=== PATIENT | male | born 1970 | race Caucasian/White ===

== ENCOUNTER 2020-01-17 17:18 | Outpatient (REF) | payer OTHER, SELFPAY | END 2020-01-17 17:19 | disposition home or self-care (01) | LOC: HO.LAB 17:18 | PROVIDERS: Visit Provider Internal Medicine | DX: Z20.828 Contact with and (suspected) exposure to other viral communicable diseases (principal) | CPT/HCPCS: C9803; U0003 ==

== ENCOUNTER 2020-03-25 08:09 | Inpatient (IN) | payer OTHER, SELFPAY ==
[2020-03-25] VITALS (15 sets, daily range): BP systolic 105–162; BP diastolic 58–91; PULSE 72–103; RESP 16–18; TEMP 36.2–37.8; O2SAT 92–99; BMI 36.2
--- NOTE | 2020-03-25 09:20 | CT_ITS ---
EXAMINATION: CT ABDOMEN AND PELVIS WITH CONTRAST CLINICAL INFORMATION: Abdominal pain. COMPARISON: None TECHNIQUE: Multidetector volumetric images were obtained from the superior aspect of the liver through the pubic symphysis following administration 85 mL of Omnipaque 350 intravenous contrast. Sagittal and coronal reformatted images were obtained on the technologist's workstation. Oral contrast: Yes This CT examination was performed using dose optimization techniques as appropriate, variously including the following: *Automated exposure control *Adjustment of mA and/or kV according to patient size (this includes techniques or standardized protocols for targeted exams where dose is matched to indication/reason for exam; i.e. extremities or head) *Use of iterative reconstruction technique DLP: 862 mGy-cm FINDINGS: LUNG BASES: The visualized lung bases are unremarkable. LIVER, GALLBLADDER, AND BILIARY TREE: The liver is low in attenuation suggestive of fatty infiltration. No focal liver lesion is seen. The liver is enlarged, right lobe measuring 24 cm in length. The gallbladder is unremarkable with no evidence of radiopaque gallstones, gallbladder wall thickening, or obvious pericholecystic inflammatory changes. PANCREAS: Unremarkable. SPLEEN: The spleen is enlarged measuring 14 cm in length. The spleen is otherwise unremarkable. ADRENAL GLANDS: Unremarkable. KIDNEYS AND URETERS: The kidneys are normal in size, shape, and attenuation. No hydronephrosis, hydroureter, or calculi seen. No perinephric stranding. BLADDER: Not optimally distended. GASTROINTESTINAL TRACT: The appendix is slightly dilated measuring up to 1.3 cm and fluid-filled. There is high attenuation seen in the base of the appendix suggestive of an appendicolith. There is minimal stranding of the periappendiceal fat. Findings are suggestive of acute appendicitis. No abscess or adjacent fluid is seen. Small and large bowel is unremarkable. The stomach is unremarkable. ABDOMINAL WALL: There is a small umbilical hernia containing fat. There is a small right inguinal hernia containing fat. LYMPH NODES: Normal. VASCULAR: Unremarkable. PELVIC VISCERA: Unremarkable. OSSEOUS STRUCTURES: There are degenerative changes of the spine. CT/CT abdomen pelvis w con IMPRESSION: Acute appendicitis. Fatty liver. Hepatosplenomegaly.
--- NOTE | 2020-03-25 09:21 | ED_ITS ---
HPI - General Adult General Chief complaint: Abdominal Pain Stated complaint: abd pain Time Seen by Provider: 03/25/20 09:09 Source: patient Mode of arrival: ambulatory Limitations: no limitations History of Present Illness HPI narrative: 49-year-old male who presents emergency department for the evaluation of abdominal pain. The patient states that the pain woke him up from sleep at around 1:30 a.m.. He describes the pain as a constant, punching sensation across his mid umbilical area. He states that the pain is 7/10. He states that he has the urge to move his bowels but he only moved his bowels once. He denied frequency or dysuria. He denied nausea, vomiting, fever or chills. He denied chest pain or shortness of breath. This is the patient's 1st episode this type pain. He has no past medical history or past surgical history. Related Data Allergies Allergy/AdvReac Type Severity Reaction Status Date / Time No Known Allergies Allergy Unverified 11/29/19 16:13 Review of Systems Review of Systems: Yes all other systems are reviewed and are negative Neurologic: Reports Abnormal speech present [facility] Past Medical History [facility] Narrative: The patient has no past medical or past surgical history, he works at [employer], he denies tobacco and alcohol use. Source: unable to obtain Medical History (Updated 03/25/20 @ 09:09 by Cat Araiza) Psoriasis Social History Social History Smoking Status: Current every day smoker Use of substances other than those prescribed or required for medical reasons: No Advance Directives: No Advance Directives Information Provided: Yes Physical Exam Vital Signs: Vital Signs: Last Vital Signs Temp 98.8 F 03/25/20 09:07 Pulse 74 03/25/20 10:39 Resp 18 03/25/20 10:39 BP 119/76 03/25/20 10:39 Pulse Ox 96 03/25/20 10:39 Body Mass Index 36.2 Const: General: cooperative and healthy appearing Nutritional Appearance: obese Orientation/consciousness: oriented to person and oriented to place Limitations: no limitations HENMT: Head: Yes normal to inspection, Yes normocephalic and Yes atraumatic Ears: external ears normal General nose exam: Normal external nose present Face and sinus: Yes normal facial exam Mouth: Normal oral and palatal mucosa present Throat: Yes posterior oropharynx normal Eyes: Periorbital: periorbital findings normal Eyelids: Yes eyelids normal Conjunctivae: conjunctivae normal Sclerae: sclerae normal Corneas: corneas normal Pupils: Equal, round and reactive pupils present Direct Ophthalmoscopy: normal light reflex Neck: Neck: Yes full ROM, Yes no lymphadenopathy, Yes no meningeal signs, Yes trachea midline and Yes supple Chest: Chest palpation & inspection: normal inspection of the chest and normal palpation of entire chest wall Resp: Effort & Inspection: normal respiratory effort and able to speak in complete sentences Auscultation: clear to auscultation bilaterally Cardio: Rate: regular rate Rhythm: regular rhythm Heart sounds: S1 normal heart sound present, S2 normal heart sound present and no murmurs GI: Inspection: Yes normal to inspection Palpation (GI): Soft to palpation, Tenderness to palpation present (GI) in the LLQ (Mild), in the RLQ (Mild) and periumbilically (Moderate), no guarding, not rigid and No hepatosplenomegaly present : General: Yes no CVA tenderness Back/Spine/Pelvis: Back: no CVA tenderness Cervical Spine: normal cervical lordosis Thoracic/Lumbar Spine: thoracic and lumbar spine normal to inspection Skin: Lesions: no lesions Rashes: no rashes Wounds: no wounds Neuro: General: oriented to person, oriented to place and no meningeal signs Cranial nerves: Yes CN's II-XII intact bilaterally and Yes Equal, round and reactive pupils present Cognition (Neuro): normal cognition Speech: Abnormal speech present Motor exam (neuro): 5/5 motor strength present throughout Extrem: General: Yes normal to inspection and Yes full ROM Psych: Appearance: well kempt Mental Status: mental status grossly normal Speech and movement: Normal speech and movement present Affect: normal affect Attitude: cooperative Thought process: Normal thought process present Thought content: Normal thought content present Course Course Course Narrative: 49-year-old male with no past medical or surgical history presents emergency department for evaluation of periumbilical pain which woke him from sleep at 1:30 a.m.. Examination did reveal periumbilical tenderness as well as very mild left lower and right lower quadrant tenderness. Differential includes but is not limited to appendicitis, diverticulitis, pancreatitis. I ordered an abdominal workup to include laboratory evaluation and CT scan of the abdomen pelvis with IV contrast. Patient's symptoms were treated with Toradol 30 mg IV, Zofran 4 mg IV and normal saline x1 L. 1150: The patient's CT scan is consistent with acute appendicitis. Laboratory evaluation revealed an elevated white blood count 13982 and elevated glucose of 254. COVID-19 test was negative. I will discuss the patient's presentation with the covering hospitalist. Patient states he to get relief of his pain with Toradol and does not want a further pain medications at this time. 1157: I did discuss the patient's presentation with the covering surgeon, Dr. Brown who will admit the patient to her service for further management. Medical Decision Making Lab Data Result diagrams: 03/25/20 09:22 03/25/20 09:22 Labs: Lab Results 03/25/20 03/25/20 03/25/20 Range/Units 09:22 09:22 10:38 WBC 15.4 H (4.8-10.8) X10*3/uL RBC 5.26 (4.60-5.80) X10*6/uL Hgb 15.8 (14.0-18.0) g/dl Hct 45.1 (42-52) % MCV 85.7 (80-98) fL MCH 30.0 (27.0-33.0) pg MCHC 35.0 (31.0-36.0) g/dl RDW 12.3 (11.0-16.0) % Plt Count 216 (160-400) X10*3/uL MPV 10.5 (9.4-12.4) fL Immature Gran % (Auto) 0.5 H (0.0-0.4) % Neut % (Auto) 80.3 H (45-73) % Lymph % (Auto) 12.5 L (20-40) % [place] % (Auto) 5.9 (2-11) % Eos % (Auto) 0.4 (0-4) % Baso % (Auto) 0.4 (0-2) % Lymph # (Auto) 1.9 (1.2-4.9) X10*3/uL [place] # (Auto) 0.9 (0.1-1.2) X10*3/uL Eos # (Auto) 0.1 (0.0-0.4) X10*3/uL Baso # (Auto) 0.1 (0.0-0.2) X10*3/uL Abs Immat Gran (auto) 0.08 H (0.00-0.03) X10*3/uL Absolute Neuts (auto) 12.3 H (2.0-8.3) X10*3/uL Absolute Nucleated RBC 0.000 (0.0-0.012) X10*3/uL Nucleated RBC % (auto) 0.0 (0.0-0.2) /100WBC Sodium 135 (135-145) mmol/L Potassium 4.4 (3.3-5.1) mmol/l Chloride 99 (96-108) mmol/L Carbon Dioxide 22 (22-29) mmol/L Anion Gap 18 (12-20) BUN 10 (9-16) mg/dL Creatinine 0.95 (0.5-1.4) mg/dL Estim Creat Clear Calc 121.5 Estimated GFR > 60 Random Glucose 254 H (60-115) mg/dL Calcium 9.4 (8.4-10.2) mg/dL Total Bilirubin 0.5 (0.0-1.0) mg/dL AST 29 (5-37) U/L ALT 100 H (0-40) U/L Alkaline Phosphatase 88 (39-117) U/L Total Protein 7.8 (6.5-8.0) g/dL Albumin 4.8 (3.5-5.0) g/dL Urine Color YELLOW Urine Appearance CLEAR Urine pH 5.5 (5.0-8.0) Ur Specific [place] >= 1.030 H (1.005-1.025) Urine Protein NEG (NEG-TRACE) MG/DL Urine Glucose (UA) 250 H (NEG) MG/DL Urine Ketones NEG (NEG) MG/DL Urine Blood NEG (NEG) Urine Nitrite NEG (NEG) Ur Leukocyte Esterase NEG (NEG)
[2020-03-25 09:25] LABS: MANUAL DIFF FLAG NO
[2020-03-25] MEDS: 0.9 % Sodium Chloride 1,000 ML 999 ML IV (09:26)
[2020-03-25] MEDS: ondansetron HCL 4 MG/2 ML VIAL IVPUSH (09:26)
[2020-03-25] MEDS: Ketorolac Tromethamine 30 MG/ML VIAL IVPUSH (09:26)
[2020-03-25 09:27] LABS: Basophils Absolute Auto 0.1 X10*3/uL (0.0-0.2); Basophils Percent Auto 0.4 % (0-2); Eosinophils Absolute Auto 0.1 X10*3/uL (0.0-0.4); Eosinophils Percent Auto 0.4 % (0-4); Hematocrit 45.1 % (42-52); Hemoglobin 15.8 g/dl (14.0-18.0); Imm Gran Abs Auto 0.08 X10*3/uL (0.00-0.03); Imm Gran Pct Auto 0.5 % (0.0-0.4); Lymphocytes Absolute Auto 1.9 X10*3/uL (1.2-4.9); Lymphocytes Percent Auto 12.5 % (20-40); Mean Corpuscular Volume 85.7 fL (80-98); Mean Platelet Volume 10.5 fL (9.4-12.4); Monocytes Absolute Auto 0.9 X10*3/uL (0.1-1.2); Monocytes Percent Auto 5.9 % (2-11); Neutrophils Absolute Auto 12.3 X10*3/uL (2.0-8.3); Neutrophils Percent Auto 80.3 % (45-73); Platelet Count 216 X10*3/uL (160-400); Red Blood Count 5.26 X10*6/uL (4.60-5.80); Red Cell Distribution Width 12.3 % (11.0-16.0); White Blood Count 15.4 X10*3/uL (4.8-10.8)
[2020-03-25 10:10] LABS: Alanine Aminotransferase 100 U/L (0-40); Albumin Level 4.8 g/dL (3.5-5.0); Alkaline Phosphatase 88 U/L (39-117); Anion Gap 18 (12-20); Aspartate Amino Transferase 29 U/L (5-37); Bilirubin Total 0.5 mg/dL (0.0-1.0); Blood Urea Nitrogen 10 mg/dL (9-16); Calcium 9.4 mg/dL (8.4-10.2); Carbon Dioxide 22 mmol/L (22-29); Chloride 99 mmol/L (96-108); Creatinine Clr Calc Pharmacy 121.5; Estimated Glomerular Filt Rate > 60; Glucose Random 254 mg/dL (60-115); Potassium 4.4 mmol/l (3.3-5.1); Sodium 135 mmol/L (135-145); Total Protein 7.8 g/dL (6.5-8.0)
[2020-03-25 10:53] LABS: Glucose Urine UA 250 MG/DL (NEG); Leukocyte Esterase Urine NEG (NEG); Nitrite Urine NEG (NEG); PH 5.5 (5.0-8.0); Specific Gravity - Urine >= 1.030 (1.005-1.025); Urine Blood NEG (NEG); Urine Ketones NEG (NEG); Urine Protein NEG (NEG-TRACE)
[2020-03-25 10:54] LABS: Appearance Urine CLEAR; Color Urine YELLOW
[2020-03-25] MEDS: iohexoL 350 MG/ML 100 ML INFUS..BTL 95 ML IV (11:23)
--- NOTE | 2020-03-25 11:54 | PC.NURSE ---
patient a&ox3, no c/o pain at this time, pt awaiting surgical consult, vss, will continue to monitor.
[2020-03-25] MEDS: Piperacillin Sodium/Tazobactam 4.5 GM in 0.9 % Sodium Chloride 100 ML IV (12:27)
--- NOTE | 2020-03-25 12:51 | P.HPGS_ITS ---
History of Present Illness History of Present Illness Date of Service: 03/25/20 Chief complaint: abd pain Narrative: Hussain Bernabe is a 49 year old male who felt well yesterday but awoke early this morning with moderately severe pain across his mid abdomen just below the level of the umbilicus. He has not experienced similar pain in the past. Over the intervening time, the pain has become localized in the right lower quadrant. He has not experienced fever, chills, nausea or vomiting. He has no dysuria or urgency. He reports feeling as though he needs to move his bowels but he has been unable to since the time of the onset of pain. In the emergency department, workup included a CBC that demonstrated an elevated white blood count of 15.4. CT scan of the abdomen and pelvis was consistent with acute appendicitis with appendicoliths. Mild hepatosplenomegaly was noted. He does not have a history of diabetes mellitus. Blood glucose level was noted to be elevated at 254. Review of Systems Constitutional: Constitutional: Reports no additional constitutional complaints and Denies headache(s) Eyes: Eyes: Denies dry eyes and Denies requires corrective lenses ENT: Denies headache(s) Cardiovascular: Cardiovascular: Denies chest pain, Denies irregular heart rhythm, Denies palpitations and Denies dyspnea on exertion Respiratory: Respiratory: Denies cough, Denies dyspnea on exertion and Denies wheezing Gastrointestinal: Gastrointestinal: Reports as per HPI Genitourinary: Genitourinary: Denies dysuria, Denies nocturia and Denies urinary frequency Musculoskeletal: Comments: Generalized aches and pains Integumentary/Breasts: Skin/Breast: Denies pruritus Comments: History of psoriasis treated with injectable medication every other month Neurologic: Reports Abnormal speech present, Denies headache(s) and Denies memory loss Psychiatric: Psychiatric: Denies memory loss Endocrine: Endocrine: Denies palpitations Allergic/Immunologic: Allergic/Immunologic: Denies wheezing PMF Past Medical History Medical History (Updated 03/25/20 @ 13:00 by Benita Brown MD) Psoriasis Surgical History Surgical History (Updated 03/25/20 @ 12:57 by Benita Brown MD) History of right inguinal hernia repair Social History Social History (Updated 03/25/20 @ 12:57 by Benita Brown MD) Smoking Status: Current every day smoker Packs Per Day: 1 Use of substances other than those prescribed or required for medical reasons: No Advance Directives: No Advance Directives Information Provided: Yes Meds Allergies Allergy/AdvReac Type Severity Reaction Status Date / Time No Known Allergies Allergy Unverified 11/29/19 16:13 Physical Exam Vital Signs: Vital Signs: Last Vital Signs Temp 98.2 F 03/25/20 11:53 Pulse 78 03/25/20 11:53 Resp 18 03/25/20 11:53 BP 129/78 03/25/20 11:53 Pulse Ox 96 03/25/20 11:53 Body Mass Index 36.2 Const: General: healthy appearing, no acute distress and alert Orientation/consciousness: oriented to person and oriented to place HENMT: Head: Yes normal to inspection Ears: hearing grossly normal bilaterally Face and sinus: Yes normal facial exam Eyes: Conjunctivae: conjunctivae normal Sclerae: sclerae normal EOM: EOMs intact bilaterally Neck: Neck: Yes normal visual inspection and Yes trachea midline Resp: Effort & Inspection: normal respiratory effort Auscultation: clear to auscultation bilaterally Cardio: Rate: regular rate Rhythm: regular rhythm Heart sounds: no murmurs GI: Inspection: No distended Palpation (GI): Soft to palpation, Tenderness to palpation present (GI) in the RLQ, no guarding, not rigid and Hernia present umbilical (Small) Auscultation: normal bowel sounds Rectal Exam - Male: Yes deferred Skin: Other: normal color, warm and dry Neuro: General: oriented to person and oriented to place Cognition (Neuro): normal cognition Speech: Abnormal speech present Extrem: General: Yes normal to inspection Psych: Appearance: grossly normal Mental Status: mental status grossly normal Affect: normal affect Thought process: Normal thought process present Insight: Good insight present (Psych) Results Results Labs: Short CBC 03/25/20 Range/Units 09:22 WBC 15.4 H (4.8-10.8) X10*3/uL Hgb 15.8 (14.0-18.0) g/dl Hct 45.1 (42-52) % Plt Count 216 (160-400) X10*3/uL BMP 03/25/20 09:22 Sodium 135 Potassium 4.4 Chloride 99 Carbon Dioxide 22 BUN 10 Creatinine 0.95 Calcium 9.4 Liver Function 03/25/20 Range/Units 09:22 Total Bilirubin 0.5 (0.0-1.0) mg/dL AST 29 (5-37) U/L ALT 100 H (0-40) U/L Alkaline Phosphatase 88 (39-117) U/L Albumin 4.8 (3.5-5.0) g/dL Urine 03/25/20 Range/Units 10:38 Urine Color YELLOW Urine Appearance CLEAR Urine pH 5.5 (5.0-8.0) Ur Specific [place] >= 1.030 H (1.005-1.025) Urine Protein NEG (NEG-TRACE) MG/DL Urine Glucose (UA) 250 H (NEG) MG/DL CT scan abdomen and pelvis: IMPRESSION: Acute appendicitis. Fatty liver. Hepatosplenomegaly. Assessment and Plan (1) Acute appendicitis: Status: Acute History, exam findings and CT scan are consistent with acute appendicitis. The CT scan demonstrates an appendicoliths, which is a relative contraindication to antibiotic therapy. We discussed treatment options including but not limited to antibiotic treatment, open appendectomy and la paroscopic appendectomy with potential need to convert to open. We discussed that antibiotic therapy may not be successful and that there is an increased likelihood of this given the presence of the appendicoliths. We reviewed that if it is successful, there is a possibility that he will developed recurrent appendicitis. We reviewed the technique of appendectomy and the potential advantages of laparoscopic appendectomy with earlier return to full activity. We reviewed surgical risks including but not limited to infection, bleeding, DVT and PE, error in diagnosis, incisional hernia, and breakdown of repair at the site of appendectomy. He has elected to proceed with laparoscopic appendectomy. That has been scheduled for later this afternoon. Blood sugars noted to be significantly elevated. This will be followed during hospitalization.
[2020-03-25] MEDS: Lactated Ringers 1,000 ML 250 ML IVCONT (13:02)
[2020-03-25] MEDS: Morphine Sulfate 4 MG/ML CARTRIDGE IVPUSH (13:10)
--- NOTE | 2020-03-25 13:15 | PC.NURSE ---
med req completed, patient belongings list completed, ivf started and patient medicated for pain, will continue to monitor.
--- NOTE | 2020-03-25 13:29 | PC.NURSE ---
report given to aide at [facility], she stated pt will eventually go direct to PACU before surgery but they wont be taking the patient until later, his surgery will be approx 430pm.
--- NOTE | 2020-03-25 15:18 | PC.NURSE ---
pt report given to PACU, pt transferred to PACU with editorial intern and mexican food cook
--- NOTE | 2020-03-25 15:52 | MHC.CM.PN ---
Attempted to meet with patient in regards to discharge planning. Patient transported to PACU. Will attempt to meet again. Continue to monitor for d/c needs.
--- NOTE | 2020-03-25 16:07 | P.CONAN_ITS ---
HPI - Anesthesia Eval Consult details Narrative: 49 M for appendectomy FOR[facility]LY [facility], [facility] Past Medical History Medical History Psoriasis Surgical History Surgical History History of right inguinal hernia repair Social History Social History Smoking Status: Current every day smoker Packs Per Day: 1 Use of substances other than those prescribed or required for medical reasons: No Advance Directives: No Advance Directives Information Provided: Yes Meds Allergies Allergy/AdvReac Type Severity Reaction Status Date / Time No Known Allergies Allergy Unverified 11/29/19 16:13 Home Medications Medication Instructions Recorded Confirmed Type No Known Home Meds 03/25/20 03/25/20 History Exam Exam Date and Time: March 25, 2020 1607 Height,Weight and Vital Signs: Height 5 ft 11 in Weight 117.934 kg Last Vital Signs Temp 99.2 F 03/25/20 15:17 Pulse 84 03/25/20 15:17 Resp 18 03/25/20 15:17 BP 119/81 03/25/20 15:17 Pulse Ox 97 03/25/20 15:17 Pertinent Lab Results Pertinent Lab Results: Laboratory Tests 03/25/20 03/25/20 03/25/20 09:22 09:22 10:38 WBC 15.4 H RBC 5.26 Hgb 15.8 Hct 45.1 MCV 85.7 MCH 30.0 MCHC 35.0 RDW 12.3 Plt Count 216 MPV 10.5 Immature Gran % (Auto) 0.5 H Neut % (Auto) 80.3 H Lymph % (Auto) 12.5 L [place] % (Auto) 5.9 Eos % (Auto) 0.4 Baso % (Auto) 0.4 Lymph # (Auto) 1.9 [place] # (Auto) 0.9 Eos # (Auto) 0.1 Baso # (Auto) 0.1 Abs Immat Gran (auto) 0.08 H Absolute Neuts (auto) 12.3 H Absolute Nucleated RBC 0.000 Nucleated RBC % (auto) 0.0 Sodium 135 Potassium 4.4 Chloride 99 Carbon Dioxide 22 Anion Gap 18 BUN 10 Creatinine 0.95 Estim Creat Clear Calc 121.5 Estimated GFR > 60 Random Glucose 254 H Calcium 9.4 Total Bilirubin 0.5 AST 29 ALT 100 H Alkaline Phosphatase 88 Total Protein 7.8 Albumin 4.8 Urine Color YELLOW Urine Appearance CLEAR Urine pH 5.5 Ur Specific [place] >= 1.030 H Urine Protein NEG Urine Glucose (UA) 250 H Urine Ketones NEG Urine Blood NEG Urine Nitrite NEG Ur Leukocyte Esterase NEG Airway Mallampati Class: III TM Dist: >3cm Neck ROM: Full Loose/Missing/Broken Teeth: No Heart: RRR Lungs: NL Other: AO Assessment and Plan Assessment Anesthesia Assessment: Anesthesia Plan Discussed and Chart Reviewed Final Anesthetic Review NPO: Yes ASA Class: II and Emergency Final Preanesthetic Review: No Changes in Pt Med Stat, Meds/Allgs Chart Reviewed, Consent Obtained/Reviewed and Anes Risks/Benef Reviewed Patient Risk: Intermediate Procedure Risk: Low Anesthetic Plan Anesthetic Plan: GA Disposition: Standard PACU
[2020-03-25] MEDS: Lactated Ringers 1,000 ML 50 ML IVCONT (16:15)
--- NOTE | 2020-03-25 16:39 | MHC.SHP ---
Pre-Procedural Eval Section A The patient is an INPATIENT: Yes Section B Chief Complaint: Acute appendicitis Allergies: Allergies Allergy/AdvReac Type Severity Reaction Status Date / Time No Known Allergies Allergy Unverified 11/29/19 16:13 Plan Diagnosis/Plan: Unchanged I have reviewed the history and physical and performed a pertinent physical examination on my patient. No changes have occurred unless specified.
--- NOTE | 2020-03-25 18:35 | P.OP_ITS ---
Operative Note Operative Note Date of Service: 03/25/20 Narrative: Preoperative diagnosis: Acute appendicitis Postoperative diagnosis: Same Procedure: Laparoscopic appendectomy Marketing Communication Manager: None Anesthesia: General endotracheal Specimen: Appendix Estimated blood loss: 10 cc Other findings: None Immediate complications: None Indications: This is a 49-year-old gentleman who had onset of abdominal pain early this morning. Over time, the pain localized to the right lower quadrant. Examination and CT findings were consistent with acute appendicitis and laparoscopic appendectomy is planned. Procedure in detail: With patient in the supine position after induction of a dequate general anesthesia, time-out procedure was performed. 2 g of cefotetan were infused for antibiotic prophylaxis. The abdomen was prepped with ChloraPrep and was draped sterilely. Each trocar site was infiltrated with local anesthetic prior to making incisions. An infraumbilical incision was made and was carried down to the level of the fascia. The fascia was elevated in the midline and holding sutures of 0 Polysorb were placed on either side. The Asad was released and the fascia was split in the midline. The peritoneal cavity was entered and a Nayan trocar was inserted and stabilized with the fascial sutures. The abdomen was insufflated with carbon dioxide to a pressure 15 mm of mercury and the 0 degree 5 mm laparoscopic was inserted. The peritoneal cavity was visualized. No abnormalities were noted initially. 5 mm trocars were placed laterally in the left lower quadrant and in the lower midline a few cm above the pubis. The patient was rotated slightly left side down. Blunt graspers were inserted. The right lower quadrant was inspected and the appendix was visualized and gently elevated with the blunt graspers. The left lower quadrant grasper was then exch anged for the 5 mm laparoscopic LigaSure or and the mesoappendix was divided down to the base of the appendix. During the process of dissection, in order to obtain improved visualization, the 5 mm 0 degree laparoscoped was removed and a 5 mm 30 degree scope was inserted. The laparoscopic was removed and replaced through the left lower quadrant port. An Endo OBED 30 mm bowel stapler was inserted. The jaws were angled and the device was opened. It was placed across the junction of the appendix and cecum and the device was closed. The jaws were inspected to ensure that no extraneous tissues were included and the device was then fired, opened and removed. The staple line was inspected and was confirmed to be intact with no bleeding. A specimen pouch was inserted through the Nayan trocar and the appendix was placed into the pouch. The pouch was then withdrawn along with the Nayan trocar. The Nayan was reinserted and the laparoscopic was placed back through it. The ground instructor advanced was then inserted through the lower midline trocar in the right lower quadrant was copiously irrigated with saline solution. The staple line on the cecum was again inspected and noted to be intact without evidence of bleeding. 5 mm trocars were then removed under direct vision without evidence of significant bleeding from trocar sites. Insufflation was discontinued and gas was allowed to escape from the peritoneal cavity. The Nayan trocar was removed. Fascia at the Nayan site was closed with a [id number] suture of 0 Polysorb and the holding sutures were tied to 1 another. Skin incisions were closed with interrupted sutures of 4 0 Polysorb. Steri-Strips and dry sterile dressings were applied. He was placed back in the supine position. He tolerated the procedure well and was transported to the recovery room in stable condition. There were no immediate complications.
[2020-03-25 20:04] LABS: Glucose, Whole Blood 260 mg/dL (60-115)
--- NOTE | 2020-03-25 20:04 | PC.NURSE ---
P-BS 260 I- notified e-awaiting new orders
[2020-03-25] MEDS: Lactated Ringers 1,000 ML 125 ML IVCONT (20:27)
[2020-03-25] MEDS: Insulin Lispro 100 UNIT/ML 3 ML VIAL SUBCUT (20:28)
[2020-03-26] MEDS: Acetaminophen 325 MG TABLET 650 MG PO ×3 (00:22→12:13)
[2020-03-26 03:31] VITALS: BP 123/63; PULSE 69; RESP 18; TEMP 35.7; O2SAT 95
[2020-03-26] MEDS: Lactated Ringers 1,000 ML 125 ML IVCONT (03:38)
[2020-03-26 06:55] LABS: Estimated Average Glucose 209 mg/dL; Hemoglobin A1c % 8.9 %
[2020-03-26 07:08] LABS: Anion Gap 13 (12-20); Blood Urea Nitrogen 12 mg/dL (9-16); Calcium 8.5 mg/dL (8.4-10.2); Carbon Dioxide 27 mmol/L (22-29); Chloride 103 mmol/L (96-108); Creatinine Clr Calc Pharmacy 124.1; Estimated Glomerular Filt Rate > 60; Glucose Fasting 241 mg/dL (60-99); Potassium 4.4 mmol/l (3.3-5.1); Sodium 139 mmol/L (135-145)
[2020-03-26 07:29] VITALS: BP 105/67; PULSE 67; RESP 18; TEMP 36.2; O2SAT 96
[2020-03-26 07:34] LABS: Glucose, Whole Blood 208 mg/dL (60-115)
[2020-03-26] MEDS: Insulin Lispro 100 UNIT/ML 3 ML VIAL SUBCUT ×2 (07:56→12:13)
--- NOTE | 2020-03-26 08:04 | PM.PNGS ---
Subjective Subjective Date of Service: 03/26/20 Interval history: Feels well this morning. Having pain at umbilicus but comfortable. Tolerating solid diet. OOB and ambulating without difficulty. Physical Exam Vital Signs: Vital Signs: Last Vital Signs Temp 97.2 F 03/26/20 07:29 Pulse 67 03/26/20 07:29 Resp 18 03/26/20 07:29 BP 105/67 03/26/20 07:29 Pulse Ox 96 03/26/20 07:29 Body Mass Index 36.2 Const: General: comfortable, no acute distress and alert Orientation/consciousness: patient oriented x3 Eyes: Sclerae: sclerae normal Resp: Effort & Inspection: normal respiratory effort Cardio: Rate: regular rate GI: Inspection: Yes incision (dressings c/d/i) and Yes other (protuberant) Palpation (GI): Soft to palpation, Tenderness to palpation present (GI) (mild, umbilicus), no guarding and No Rebound tenderness present Skin: General skin exam: no rashes or lesions noted Neuro: General: patient oriented x3 Extrem: General: Yes no clubbing, cyanosis or edema Progress Note: A&P Assessment and plan (1) Acute appendicitis: Status: Acute (2) Elevated hemoglobin A1c: Status: Acute Assessment and Plan: Await hospitalist evaluation. F/u with Dr. Johnson upon discharge. (3) S/P laparoscopic appendectomy: Problem details: POD #1 Status: Acute Assessment and Plan: Doing well, comfortable. VSS. Abd exam benign, dressings clean. Patient stable and ready for discharge to home today once seen by medical service. F/u in office with Dr. Brown in 1-2 weeks. Fall Risk Details Current Medications: Current Medications Generic Name Dose Route Start Last Admin Trade Name Freq PRN Reason Stop Dose Admin Acetaminophen 650 mg 03/25/20 18:45 03/26/20 06:12 Acetaminophen 325 Mg Tablet PO 650 mg Q6H LORENZO Administration Lactated Ringer's 1,000 mls @ 125 mls/hr 03/25/20 19:43 03/26/20 03:38 Lr IVCONT 125 mls/hr .Q8H LORENZO Administration Insulin Human Lispro 0 unit 03/25/20 21:00 03/26/20 07:56 Insulin Lispro 100 Unit/Ml 3 Ml Vial SUBCUT 4 unit QIDACHS LORENZO Administration Protocol Morphine Sulfate 4 mg 03/25/20 12:50 03/25/20 13:10 Morphine Sulfate 4 Mg/Ml Cartridge IVPUSH 4 mg Q3H PRN Administration Pain, Severe (Pain Scale 7-10) Ondansetron HCl 4 mg 03/25/20 18:43 Ondansetron Hcl 4 Mg/2 Ml Vial IVPUSH Q8H PRN Nausea and Vomiting Oxycodone HCl 5 mg 03/25/20 18:43 Oxycodone Hcl Immed Release 5 Mg Tablet PO Q4H PRN Pain, Moderate (Pain Scale 4-6 Oxycodone HCl 10 mg 03/25/20 18:43 Oxycodone Hcl Immed Release 5 Mg Tablet PO Q4H PRN Pain, Severe (Pain Scale 7-10) Pharmacy Consult 1 each 03/25/20 12:51 Consult Rx Perform Med Rec MISCELLANE ONCE PRN Consult order Time Spent With Patient Time: Total time spent is greater than 50% in coordination of care (as documented) at patient's floor/unit and/or counseling patient: Time with patient: 15 - 24 minutes
[2020-03-26 09:27] LABS: Glucose, Whole Blood 261 mg/dL (60-115)
--- NOTE | 2020-03-26 10:06 | HO.POSTANES ---
Post Anesthesia Evaluation Post Anesthesia Evaluation Vital Signs: Vital Signs Temp Pulse Resp BP Pulse Ox 03/26/20 07:29 97.2 F 67 18 105/67 96 03/26/20 03:31 96.3 F L 69 18 123/63 95 03/25/20 23:45 98.9 F 87 18 142/72 H 94 Anesthesia: General Endotracheal-GETA Mental Status: Awake Pain Control: Satisfactory Nausea/Vomiting: None Hydration: Adequate Anesthesia-Related Issues: No Anes. Related Issues
--- NOTE | 2020-03-26 10:26 | PM.EVENT ---
Event Note Date of Service: 03/26/20 Event Note: Patient seen examined full dictation to follow Problem list Diabetes mellitus new onset type 2 Tobacco use disorder Obesity Appendicitis postoperative day 1 Plan Advised patient to follow blood sugars t.i.d. take Glucophage twice daily, nutrition consult obtained, patient to be discharged with glucometer, lancets, glucose strip, requested nursing staff to start teaching to check blood sugar.
[2020-03-26] MEDS: metFORMIN HCl 500 MG TABLET PO (10:33)
--- NOTE | 2020-03-26 10:54 | MHC.CM.PN ---
pt lives c his in their home. he reports that he is independent in his care. he works a job and drives a car. pt denies the need for vna at dc. will provide transportation at dc. dc plan is home no svcs. cm to cont. to follow.
[2020-03-26 11:42] LABS: Glucose, Whole Blood 197 mg/dL (60-115)
--- NOTE | 2020-03-26 13:09 | MHC.CLN ---
RE: CONSULT COMPLETED DM TEACHING SEE TEACHING RECORD
--- NOTE | 2020-03-26 13:59 | PM.DS ---
DS: Providers Provider Date of Service: 03/26/20 Date of admission: 03/25/20 12:50 Primary care physician: Ervin Johnson MD Consults: 03/25/20 20:08 Consult to Hospitalist Routine Consulting Provider: Hospitalist Reason for consultation: elevated blood sugar, ? new dx diabetes Has provider been notified: Yes 03/25/20 20:44 Consult Respiratory Therapy Routine Reason for consultation: smoker DS: Diagnosis Discharge Diagnosis (1) Acute appendicitis: Status: Acute Problem details: This is a 49-year-old male who presented to the emergency room with recent onset of mid abdominal pain localizing to the right lower quadrant turning his time in the emergency department. White blood count was elevated at 15.[address] scan of the abdomen and pelvis was consistent with acute appendicitis with appendicolith present. Treatment options were reviewed including antibiotic therapy, though the presence of the appendicoliths was noted as a relative contraindication, open appendectomy and laparoscopic appendectomy with potential need to convert to open. He elected to proceed with laparoscopic appendectomy. This was done on the day of admission. On postoperative day 1, he had good pain control and was tolerating a solid diet. He was stable for discharge and was to follow up in the office in 1-2 weeks. (2) Elevated hemoglobin A1c: Status: Acute Problem details: Blood sugar was noted to be elevated on admission, 254. Hemoglobin A1c on 03/26/2019 was 8.9. New diagnosis of diabetes mellitus type 2. He was treated initially with blood sugar monitoring and the sliding scale coverage. He was seen by Dr. Loyd of the hospitalist service. Treatment with Glucophage 500 mg b.i.d. was initiated. He had initial diabetic teaching and was to monitor his blood sugar at home and to follow up with his primary physician, Dr. Johnson, within 1 week. (3) S/P laparoscopic appendectomy: Status: Acute Problem details: POD #1 DS: Medications Discharge Medications Home Medications: Previous Rx's Medication Instructions Recorded blood sugar diagnostic [Accu-Chek #10 ea 03/26/20 Nathaly Plus test strp] blood-glucose meter [Accu-Chek #1 ea 03/26/20 Nathaly Plus Meter] lancets [Accu-Chek Multiclix #100 ea 03/26/20 Lancet] metformin [Glucophage] 500 mg PO BID #60 tab 03/26/20 oxycodone 5 mg PO Q4H PRN #20 tab 03/26/20 DS: Summary Time Spent with Patient Time attestation: Total time spent providing and/or coordinating discharge services: Discharge coordination time: Less than 30 minutes Physical Exam Vital Signs: Vital Signs: Last Vital Signs Temp 97.2 F 03/26/20 07:29 Pulse 67 03/26/20 07:29 Resp 18 03/26/20 07:29 BP 105/67 03/26/20 07:29 Pulse Ox 96 03/26/20 07:29 Body Mass Index 36.2 Const: Other: Alert, in no apparent distress HENMT: Head: Yes normocephalic and Yes atraumatic Eyes: Other: Bilateral subconjunctival hemorrhage present Resp: Other: Clear to auscultation Cardio: Other: Regular rate and rhythm GI: Other: Round, soft, surgical dressings intact, bowel sounds active Psych: Insight: Good insight present (Psych) Judgement: Good judgement present (Psych) DS: Data Data Completed and Pending Pending studies at discharge: Pending at discharge 03/25/20 17:52 Surgical [PTH] Routine Labs on day of discharge: Laboratory Tests 03/25/20 03/25/20 03/25/20 09:22 09:22 10:38 WBC 15.4 H RBC 5.26 Hgb 15.8 Hct 45.1 MCV 85.7 MCH 30.0 MCHC 35.0 RDW 12.3 Plt Count 216 MPV 10.5 Immature Gran % (Auto) 0.5 H Neut % (Auto) 80.3 H Lymph % (Auto) 12.5 L Churchill % (Auto) 5.9 Eos % (Auto) 0.4 Baso % (Auto) 0.4 Lymph # (Auto) 1.9 Churchill # (Auto) 0.9 Eos # (Auto) 0.1 Baso # (Auto) 0.1 Abs Immat Gran (auto) 0.08 H Absolute Neuts (auto) 12.3 H Absolute Nucleated RBC 0.000 Nucleated RBC % (auto) 0.0 Sodium 135 Potassium 4.4 Chloride 99 Carbon Dioxide 22 Anion Gap 18 BUN 10 Creatinine 0.95 Estim Creat Clear Calc 121.5 Estimated GFR > 60 POC Glucose Random Glucose 254 H Fasting Glucose Estimat Average Glucose Hemoglobin A1c % Calcium 9.4 Total Bilirubin 0.5 AST 29 ALT 100 H Alkaline Phosphatase 88 Total Protein 7.8 Albumin 4.8 Urine Color YELLOW Urine Appearance CLEAR Urine pH 5.5 Ur Specific Shirley >= 1.030 H Urine Protein NEG Urine Glucose (UA) 250 H Urine Ketones NEG Urine Blood NEG Urine Nitrite NEG Ur Leukocyte Esterase NEG 03/25/20 03/26/20 03/26/20 19:56 06:04 06:04 WBC RBC Hgb Hct MCV MCH MCHC RDW Plt Count MPV Immature Gran % (Auto) Neut % (Auto) Lymph % (Auto) Churchill % (Auto) Eos % (Auto) Baso % (Auto) Lymph # (Auto) Churchill # (Auto) Eos # (Auto) Baso # (Auto) Abs Immat Gran (auto) Absolute Neuts (auto) Absolute Nucleated RBC Nucleated RBC % (auto) Sodium 139 Potassium 4.4 Chloride 103 Carbon Dioxide 27 Anion Gap 13 BUN 12 Creatinine 0.93 Estim Creat Clear Calc 124.1 Estimated GFR > 60 POC Glucose 260 H Random Glucose Fasting Glucose 241 H Estimat Average Glucose 209 Hemoglobin A1c % 8.9 Calcium 8.5 D Total Bilirubin AST ALT Alkaline Phosphatase Total Protein Albumin Urine Color Urine Appearance Urine pH Ur Specific Shirley Urine Protein Urine Glucose (UA) Urine Ketones Urine Blood Urine Nitrite Ur Leukocyte Esterase 03/26/20 03/26/20 03/26/20 07:27 09:21 11:37 WBC RBC Hgb Hct MCV MCH MCHC RDW Plt Count MPV Immature Gran % (Auto) Neut % (Auto) Lymph % (Auto) Churchill % (Auto) Eos % (Auto) Baso % (Auto) Lymph # (Auto) Churchill # (Auto) Eos # (Auto) Baso # (Auto) Abs Immat Gran (auto) Absolute Neuts (auto) Absolute Nucleated RBC Nucleated RBC % (auto) Sodium Potassium Chloride Carbon Dioxide Anion Gap BUN Creatinine Estim Creat Clear Calc Estimated GFR POC Glucose 208 H 261 H 197 H Random Glucose Fasting Glucose Estimat Average Glucose Hemoglobin A1c % Calcium Total Bilirubin AST ALT Alkaline Phosphatase Total Protein Albumin Urine Color Urine Appearance Urine pH Ur Specific Shirley Urine Protein Urine Glucose (UA) Urine Ketones Urine Blood Urine Nitrite Ur Leukocyte Esterase Discharge Plan Discharge Patient Disposition: Home, Self-Care Referrals: Ervin Johnson MD [Primary Care Provider] - 2 Weeks Benita Brown MD [Physician] - 2 Weeks Discharge Medications: New metformin [Glucophage] 500 mg tablet 500 mg PO BID Qty: 60 RF: 0 (DME) lancets [Accu-Chek Multiclix Lancet] Misc See Rx Instructions .ROUTE .MEDSUPPLY Qty: 100 RF: 0 (DME) blood-glucose meter [Accu-Chek Nathaly Plus Meter] Misc See Rx Instructions .ROUTE .MEDSUPPLY Qty: 1 RF: 0 (DME) Accu-Chek Nathaly Plus test strp Strip See Rx Instructions .ROUTE .MEDSUPPLY Qty: 10 RF: 0 oxycodone 5 mg tablet 5 mg PO Q4H PRN (Reason: pain) Qty: 20 RF: 0 Discharge Orders: Discharge Order (Routine); Ordered 03/26/20 Ordered By: Soco Baltazar Diet: diabetic diet Activity on Discharge: No heavy lifting Patient Instructions: Metformin (By mouth), Type 2 Diabetes in Adults: New Diagnosis (DC), Diabetes and Exercise (DC) Stand Alone Forms: Work/School Release Discharge Date/Time: 03/26/20 12:35 Activity Restrictions/Additional Instructions: If the incision area is tender, you may apply an ice pack for short intervals (No more than 20 minutes on, followed by at least 20 minutes off). Do not apply heat. Do not use creams, lotions, or topical antibiotics unless instructed to do so by your surgeon. These can cause infection or allergic reaction. Remove bandaids in 2 days. Ok to shower. You have steri strips (small white cloth strips) covering your incision- these will fall off ~1 week. Call Your Doctor If: -Your temperature exceeds 101.5? F -You experience excessive pain or swelling -You have an unexpected reaction to medication -You have excessive bleeding -You experience continued vomiting/nausea -Your incision begins to separate -Your incision shows signs of infection such as increased redness, swelling, excessive pain, drainage (light blood or clear fluid is normal) or heat Blood Sugars: Check blood sugars three times a day. Visit Report Forms: Patient Portal Discharge page Care Plan Goals: Return to baseline health and activity following recovery period. Improvement in Hgb A1c. Health Concerns: Acute appendicitis s/p lap appy, found to have elevated hemoglobin A1C Plan of Treatment: Discharge to home, f/u in office with Dr. Brown and Dr. Johnson. Follow blood sugars, increase exercise, diabetic diet.
== END 2020-03-26 12:35 | disposition home or self-care (01) | DRG 343 ==
LOC: HO.ED 13:05 → HO.EDOVER 13:57 → HO.S3 17:10
PROVIDERS: Admitting Provider Surgery; Emergency Provider Emergency Medicine Emergency Medical Services; PCP Internal Medicine; Visit Provider Surgery
PROC: 0DTJ4ZZ Resection of Appendix, Percutaneous Endoscopic Approach (ICD-10-PCS; CPT 44970; principal; 2020-03-25 16:30)
DX: K35.80 Unspecified acute appendicitis (principal); L40.9 Psoriasis, unspecified; F17.210 Nicotine dependence, cigarettes, uncomplicated; E66.9 Obesity, unspecified; Z68.36 Body mass index [BMI] 36.0-36.9, adult; E11.65 Type 2 diabetes mellitus with hyperglycemia
CPT/HCPCS: 44970; 36415; 74177; 80048; 80053; 81003; 82947; 83036; 85025; 88304; 96361; 96365; 96375; 99284; 99285; J0131; J0330; J1100; J1885; J2250; J2270; J2405; J2543; J3010; Q9967

== ENCOUNTER → 2020-04-02 15:22 | Outpatient (BNVA) | payer OTHER, SELFPAY | PROVIDERS: PCP Internal Medicine; Visit Provider Surgery ==

== ENCOUNTER 2020-05-09 09:56 | Outpatient (REF) | payer OTHER, SELFPAY ==
[2020-05-09 11:42] LABS: MANUAL DIFF FLAG NO
[2020-05-09 11:53] LABS: Basophils Percent Auto 0.5 % (0-2); Eosinophils Absolute Auto 0.1 X10*3/uL (0.0-0.4); Eosinophils Percent Auto 1.9 % (0-4); Hematocrit 46.6 % (42-52); Hemoglobin 15.5 g/dl (14.0-18.0); Imm Gran Abs Auto 0.04 X10*3/uL (0.00-0.03); Imm Gran Pct Auto 0.5 % (0.0-0.4); Lymphocytes Absolute Auto 2.3 X10*3/uL (1.2-4.9); Mean Corpuscular HGB Conc 33.3 g/dl (31.0-36.0); Mean Corpuscular Hemoglobin 30.2 pg (27.0-33.0); Mean Corpuscular Volume 90.7 fL (80-98); Mean Platelet Volume 11.2 fL (9.4-12.4); Monocytes Absolute Auto 0.5 X10*3/uL (0.1-1.2); Neutrophils Absolute Auto 4.3 X10*3/uL (2.0-8.3); Neutrophils Percent Auto 59.1 % (45-73); Platelet Count 224 X10*3/uL (160-400); Red Blood Count 5.14 X10*6/uL (4.60-5.80); Red Cell Distribution Width 12.9 % (11.0-16.0); White Blood Count 7.3 X10*3/uL (4.8-10.8)
[2020-05-09 12:10] LABS: Estimated Average Glucose 154 mg/dL
[2020-05-09 12:29] LABS: Prostate Specific Antigen 0.52 ng/mL (<0.05-4.0)
[2020-05-09 12:34] LABS: Glucose Urine UA NEG (NEG); Leukocyte Esterase Urine NEG (NEG); Nitrite Urine NEG (NEG); PH 5.5 (5.0-8.0); Specific Gravity - Urine 1.025 (1.005-1.025); Urine Blood NEG (NEG); Urine Ketones NEG (NEG); Urine Protein NEG (NEG-TRACE)
[2020-05-09 12:40] LABS: Appearance Urine CLEAR; Color Urine YELLOW
[2020-05-09 12:42] LABS: Alanine Aminotransferase 34 U/L (0-40); Albumin Level 4.7 g/dL (3.5-5.0); Alkaline Phosphatase 64 U/L (39-117); Anion Gap 15 (12-20); Aspartate Amino Transferase 16 U/L (5-37); Bilirubin Total 0.5 mg/dL (0.0-1.0); Blood Urea Nitrogen 11 mg/dL (9-16); Carbon Dioxide 27 mmol/L (22-29); Chloride 105 mmol/L (96-108); Cholesterol 152 mg/dL; Estimated Glomerular Filt Rate > 60; Glucose Fasting 126 mg/dL (60-99); HDL Cholesterol 27 mg/dL; LDL Cholesterol Calculated 78 mg/dl; Potassium 4.9 mmol/L (3.3-5.1); Sodium 142 mmol/L (135-145); Total Protein 7.5 g/dL (6.5-8.0); Triglycerides 239 mg/dL
[2020-05-09 13:02] LABS: Creatinine Urine 116.04 mg/dL
[2020-05-11 21:02] LABS: TS Negative Control Passed; TS Panel A 0; TS Panel B 0; TS Positive Control Passed; TSpotTB Negative (SeeBelow)
== END 2020-05-09 09:57 | disposition home or self-care (01) ==
LOC: HO.LAB 09:56
PROVIDERS: Absent Provider Physician Assistant Medical; PCP Internal Medicine; Visit Provider Internal Medicine
DX: Z00.00 Encounter for general adult medical examination without abnormal findings (principal); Z12.5 Encounter for screening for malignant neoplasm of prostate; E11.9 Type 2 diabetes mellitus without complications; D22.9 Melanocytic nevi, unspecified; D23.9 Other benign neoplasm of skin, unspecified; L40.0 Psoriasis vulgaris; Z79.899 Other long term (current) drug therapy
CPT/HCPCS: 36415; 80053; 80061; 81003; 82043; 83036; 84153; 85025; 86481

== ENCOUNTER 2021-01-16 08:25 | Day surgery (SDC) | payer BC, SELFPAY ==
[2021-01-12 08:51] VITALS: BMI 41.0
--- NOTE | 2021-01-14 15:34 | HO.ANESPROP2 ---
Documented by User: Mitali Guaman NP 01/14/21 15:35 HPI - Anesthesia Eval Consult details Narrative: 50yo M for Colonoscopy PMFSH Active Problems Active Problems: All Active Problems (Updated 01/12/21 @ 08:56 by Hollie Sanchez RN) Acute appendicitis (Acute) Elevated hemoglobin A1c (Acute) S/P laparoscopic appendectomy (Acute) Past Medical History Medical History Arthritis COVID-19 vaccine series completed Diabetes Psoriasis Surgical History Surgical History H/O colonoscopy History of ankle surgery History of right inguinal hernia repair Hx of appendectomy Social History Social History (Updated 01/16/21 @ 09:07 by Erica Harry MD) Household Members: Spouse Housing: House Are you a primary medical care evaluation specialist to a significant other at home: No Do you presently have visiting nurse or other home services: No Patient Tobacco Use Status: Current everyday Tobacco user Tobacco use type: Cigarette Cigarette Packs Per Day: 1 Cigarettes Per Day: 20.0 Years Smoked: 28 Smoked in Last 30 Days: Yes Use of substances other than those prescribed or required for medical reasons: No Have you been hit, kicked, punched, or otherwise hurt by someone within the past year? If so, by whom?: No Are you DNR?: No Advance Directives: No (states would be his -unsure if has official HCP form) Advance Directives Information Provided: Yes (informational brochure mailed) Advance Directives on File: No Recently lost weight without trying: No Eating poorly because of decreased appetite: No Nutrition Risks: No Nutritional Risk Poor oral hygiene: No service: No Current occupational status: employed Meds Allergies Allergy/AdvReac Type Severity Reaction Status Date / Time No Known Allergies Allergy Verified 01/16/21 08:30 Home Medications Medication Instructions Recorded Confirmed Last Taken Type metformin 500 mg tablet 500 mg PO QAM 01/12/21 01/16/21 01/15/21 04:00 History Exam Exam Date and Time: January 14, 2021 1534 Height,Weight and Vital Signs: Height 5 ft 10 in Weight 129.727 kg Assessment and Plan Assessment Anesthesia Assessment: Chart Reviewed Documented by User: Erica Harry MD 01/16/21 09:10 PMFSH Active Problems Active Problems: All Active Problems (Updated 01/12/21 @ 08:56 by Hollie Sanchez RN) Acute appendicitis (Acute) Elevated hemoglobin A1c (Acute) S/P laparoscopic appendectomy (Acute) Increased BMI Past Medical History Medical History Arthritis COVID-19 vaccine series completed Diabetes Psoriasis Family History Family history of problems with anesthesia: No Surgical History Surgical History H/O colonoscopy History of ankle surgery History of right inguinal hernia repair Hx of appendectomy History of Problems with Anesthesia: No Social History Social History (Updated 01/16/21 @ 09:07 by Erica Harry MD) Household Members: Spouse Housing: House Are you a primary medical care evaluation specialist to a significant other at home: No Do you presently have visiting nurse or other home services: No Patient Tobacco Use Status: Current everyday Tobacco user Tobacco use type: Cigarette Cigarette Packs Per Day: 1 Cigarettes Per Day: 20.0 Years Smoked: 28 Smoked in Last 30 Days: Yes Use of substances other than those prescribed or required for medical reasons: No Have you been hit, kicked, punched, or otherwise hurt by someone within the past year? If so, by whom?: No Are you DNR?: No Advance Directives: No (states would be his -unsure if has official HCP form) Advance Directives Information Provided: Yes (informational brochure mailed) Advance Directives on File: No Recently lost weight without trying: No Eating poorly because of decreased appetite: No Nutrition Risks: No Nutritional Risk Poor oral hygiene: No service: No Current occupational status: employed Meds Allergies Allergy/AdvReac Type Severity Reaction Status Date / Time No Known Allergies Allergy Verified 01/16/21 08:30 Home Medications Medication Instructions Recorded Confirmed Last Taken Type metformin 500 mg tablet 500 mg PO QAM 01/12/21 01/16/21 01/15/21 04:00 History Exam Height,Weight and Vital Signs: Height 5 ft 10 in Weight 129.727 kg Vital Signs Temp Pulse Resp BP Pulse Ox 01/16/21 08:44 97.2 F 66 16 127/71 96 Pertinent Lab Results Pertinent Lab Results: Lab Results 01/16/21 Range/Units 08:54 POC Glucose 136 H (60-115) mg/dL Airway Mallampati Class: II (Fat neck) TM Dist: >3cm Neck ROM: Full Loose/Missing/Broken Teeth: No Heart: RRR Lungs: CTAB Assessment and Plan Assessment Anesthesia Assessment: Anesthesia Plan Discussed Final Anesthetic Review Family History of Problems with Anesthesia: No History of Problems with Anesthesia: No NPO: Yes ASA Class: III Final Preanesthetic Review: No Changes in Pt Med Stat, Meds/Allgs Chart Reviewed, Consent Obtained/Reviewed and Anes Risks/Benef Reviewed Patient Risk: Intermediate Procedure Risk: Low Assessment/Block/Sedation in SS: Assess/Block/Sedation-SS Anesthetic Plan Anesthetic Plan: MAC: Disposition: Standard PACU
[2021-01-16 08:44] VITALS: BP 127/71; PULSE 66; RESP 16; TEMP 36.2; O2SAT 96
[2021-01-16 08:59] LABS: Glucose, Whole Blood 136 mg/dL (60-115)
[2021-01-16] MEDS: Lactated Ringers 1,000 ML 100 ML IVCONT (09:03)
[2021-01-16 11:03] VITALS: BP 113/61; PULSE 70; RESP 16; TEMP 36.6; O2SAT 98
--- NOTE | 2021-01-16 11:03 | P.BOP_ITS ---
Brief Operative Note Date of Service: 01/16/21 Pre-op diagnosis: Screening Post-op diagnosis: other (Colon polyps) Procedure: Colonoscopy to the cecum with hot snare polypectomy x4, and placement of 7 Resolution clips Surgeon: Leon Holloway Anesthesia: MAC Was an Multimedia Producer used for this Procedure?: No Estimated blood loss (mL): 3.0 Pathology: other (A. Prox Asc colon polyp B. Prox Transverse colon polyp C. Mid- transverse colon polyp D. Rectal polyp) Condition: stable Disposition: PACU
[2021-01-16 11:18] VITALS: BP 107/65; PULSE 70; RESP 16; TEMP 36.6; O2SAT 97
--- NOTE | 2021-01-17 00:10 | OP_ITS ---
SURGEON: Leon Holloway MD INDICATIONS: The patient presents for evaluation of colorectal cancer screening. Full consent has been obtained from him for this, including risks of bleeding and perforation. PREOPERATIVE DIAGNOSIS: Colorectal cancer screening. POSTOPERATIVE DIAGNOSIS: PROCEDURE PERFORMED: Colonoscopy to the cecum and terminal ileum with hot snare polypectomy x 4 and placement of resolution clips. ESTIMATED BLOOD LOSS: COMPLICATIONS: ANESTHESIA: Monitored anesthesia care. ASSISTANTS: SPECIMENS: POSTOPERATIVE DIAGNOSES: Colorectal cancer screening, colon polyps, diverticulosis and internal hemorrhoids. DESCRIPTION OF PROCEDURE: The patient was placed in the left lateral decubitus position. The digital rectal exam revealed no abnormalities. The Olympus video pediatric colonoscope was entered into the rectum and advanced easily to the cecum. Once in the cecum, I did identify normal-appearing cecal pouch with appendiceal orifice and a normal-appearing ileocecal valve. The terminal ileum was cannulated and appeared normal. Scope was withdrawn back in the colon. The entire cecum and ileocecal valve appeared normal. Scope was slowly withdrawn assessing all mucosal surfaces carefully. Preparation was excellent. In the proximal ascending colon, 3 or 4 folds from the ileocecal valve, was a flat, but raised approximately 1.5 to 2.0 cm polyp, which appeared to be possibly a serrated polyp. This was removed by hot snare polypectomy with the polyp retrieved with a retrieval net. The scope was withdrawn from the patient. The scope was then inserted back into the rectum and advanced back to the polypectomy site, which appeared to be clean, without any sign of residual polyp nor bleeding. I did place 4 resolution clips across the polypectomy site with good deployment and good hemostasis. In the proximal transverse colon, was a similar polyp approximately 1.5 cm in diameter. This was also snared and removed, and then subsequently recovered with the retrieval net. This was then withdrawn from the patient. The scope was then readvanced back to that polypectomy site, which appeared to be clean, without any sign of residual polyp nor bleeding. I placed 2 resolution clips on this polypectomy site with good deployment and good hemostasis. In the mid-transverse colon, was an approximately 1 cm polyp in similar appearance to the other 2. This was also snared and removed, and subsequently recovered with the retrieval net. The scope was withdrawn from the patient. The scope was then readvanced back to the polypectomy site which appeared to be clean, without any sign of residual polyp nor bleeding. A single resolution clip was applied with good deployment and good hemostasis. In the rectum, was an approximately 8 mm polyp, which was removed by hot snare polypectomy. The polypectomy site appeared clean, without any sign of residual polyp nor bleeding. The polyp was recovered by suction. I did not visualize any other polyps, colitis, nor angiodysplasia. There was a mild amount of sigmoid diverticulosis. In the rectum, scope was retroflexed visualizing small internal hemorrhoids, but no other pathology. The scope was straightened and withdrawn from the patient. He tolerated the procedure well and was returned to the recovery area in stable condition. IMPRESSION: 1. Colon polyps. 2. Diverticulosis. 3. Internal hemorrhoids. PLAN: The results of the pathology will be checked. If these are serrated or adenomatous polyps, I would recommend a repeat colonoscopy within 1 year. If they happen to be all hyperplastic, I would recommend a followup colonoscopy in 10 years. He was advised not to use any aspirin and NSAIDs for 1 week. This has been discussed with the patient and his . MD MARY Barron/JAYDEN / [id number] MTDD
== END 2021-01-16 11:40 | disposition home or self-care (01) ==
PROVIDERS: PCP Internal Medicine; Visit Provider Internal Medicine
PROC: 0DJD8ZZ Inspection of Lower Intestinal Tract, Via Natural or Artificial Opening Endoscopic (ICD-10-PCS; CPT 45378; principal; 2021-01-16 09:20)
DX: Z12.11 Encounter for screening for malignant neoplasm of colon (principal); D12.2 Benign neoplasm of ascending colon; D12.3 Benign neoplasm of transverse colon; K62.1 Rectal polyp; K57.30 Diverticulosis of large intestine without perforation or abscess without bleeding; K64.8 Other hemorrhoids; E11.9 Type 2 diabetes mellitus without complications; L40.9 Psoriasis, unspecified; Z79.84 Long term (current) use of oral hypoglycemic drugs; F17.210 Nicotine dependence, cigarettes, uncomplicated
CPT/HCPCS: 45385; 82947; 88305

== ENCOUNTER 2021-04-24 11:15 | Outpatient (REF) | payer BC, SELFPAY ==
[2021-04-26 16:52] LABS: TS Negative Control Passed; TS Panel A 0; TS Panel B 0; TS Positive Control Passed; TSpotTB Negative (Negative)
== END 2021-04-24 11:16 | disposition home or self-care (01) ==
LOC: HO.LAB 11:15
PROVIDERS: PCP Internal Medicine; Visit Provider Physician Assistant Medical
DX: L40.0 Psoriasis vulgaris (principal); Z79.899 Other long term (current) drug therapy
CPT/HCPCS: 36415; 86481

== ENCOUNTER 2022-05-05 15:17 | Outpatient (REF) | payer BC, SELFPAY ==
[2022-05-08 08:09] LABS: TS Negative Control Passed; TS Panel A 0; TS Panel B 0; TS Positive Control Passed; TSpotTB Negative (Negative)
== END 2022-05-05 15:18 | disposition home or self-care (01) ==
LOC: HO.LAB 15:17
PROVIDERS: PCP Internal Medicine; Visit Provider Physician Assistant Medical
DX: L40.0 Psoriasis vulgaris (principal); Z79.899 Other long term (current) drug therapy
CPT/HCPCS: 36415; 86481

== ENCOUNTER 2022-12-23 09:58 | Outpatient (REF) | payer BC, SELFPAY ==
[2022-12-23 10:16] LABS: MANUAL DIFF FLAG NO
[2022-12-23 10:53] LABS: Basophils Absolute Auto 0.1 X10*3/uL (0.0-0.2); Basophils Percent Auto 0.8 % (0-2); Eosinophils Absolute Auto 0.1 X10*3/uL (0.0-0.4); Eosinophils Percent Auto 1.7 % (0-4); Hematocrit 50.7 % (42.0-52.0); Hemoglobin 17.7 g/dl (14.0-18.0); Imm Gran Abs Auto 0.06 X10*3/uL (0.00-0.03); Imm Gran Pct Auto 0.8 % (0.0-0.4); Lymphocytes Absolute Auto 2.5 X10*3/uL (1.2-4.9); Mean Corpuscular HGB Conc 34.9 g/dl (31.0-36.0); Mean Corpuscular Hemoglobin 29.8 pg (27.0-33.0); Mean Corpuscular Volume 85.5 fL (80.0-98.0); Mean Platelet Volume 10.6 fL (9.4-12.4); Monocytes Absolute Auto 0.6 X10*3/uL (0.1-1.2); Monocytes Percent Auto 7.1 % (2-11); Neutrophils Absolute Auto 4.5 x10*3/uL (2.0-8.3); Neutrophils Percent Auto 57.6 % (45-73); Platelet Count 213 X10*3/uL (160-400); Red Blood Count 5.93 X10*6/uL (4.60-5.80); Red Cell Distribution Width 12.5 % (11.0-16.0); White Blood Count 7.8 X10*3/uL (4.8-10.8)
[2022-12-23 10:53] LABS: Appearance Urine Clear; Color Urine Yellow; Glucose Urine UA >=1000 mg/dL (Negative); Leukocyte Esterase Urine Negative (Negative); Nitrite Urine Negative (Negative); UMIC TRIGGER UA YES; Urine Blood Negative (Negative); Urine Ketones Negative (Negative); Urine Protein Negative (Neg-Trace)
[2022-12-23 10:58] LABS: Bacteria Urine None Seen (None Seen); Hyaline Casts Urine 0-2 /LPF (0-2); RBC Urine 0-2 /HPF (0-2); Squamous Epithelial Cell Urine 0-2 /HPF (0-2); WBC Urine 0-5 /HPF (0-5)
[2022-12-23 11:29] LABS: Creatinine Urine 151.72 mg/dL; Microalbum/Creatinine Ratio Ur 21.7 ug/mg cr (<30)
[2022-12-23 11:31] LABS: Alanine Aminotransferase 42 U/L (0-40); Albumin Level 4.6 g/dL (3.5-5.0); Alkaline Phosphatase 89 U/L (39-117); Anion Gap 17 (12-20); Aspartate Amino Transferase 21 U/L (5-37); Bilirubin Total 0.5 mg/dL (0.0-1.0); Blood Urea Nitrogen 11 mg/dL (9-16); Calcium 9.7 mg/dL (8.4-10.2); Carbon Dioxide 23 mmol/L (22-29); Chloride 101 mmol/L (96-108); Cholesterol 186 mg/dL (<200); Estimated Glomerular Filt Rate > 60; Glucose Fasting 280 mg/dL (60-99); HDL Cholesterol 27 mg/dL (>40); Potassium 4.3 mmol/L (3.3-5.1); Sodium 137 mmol/L (135-145); Total Protein 7.9 g/dL (6.5-8.0); Triglycerides 515 mg/dL (<150)
[2022-12-23 11:48] LABS: Prostate Specific Antigen Scr 0.48 ng/mL (<0.05-4.0)
[2022-12-23 12:01] LABS: Estimated Average Glucose 249 mg/dL; Hemoglobin A1c % 10.3 % (<6.0)
[2022-12-25 19:49] LABS: TS Negative Control Passed; TS Panel A 1; TS Panel B 6; TS Positive Control Passed; TSpotTB Borderline (Negative)
== END 2022-12-23 09:59 | disposition home or self-care (01) ==
LOC: HO.LAB 09:58
PROVIDERS: Physician Assistant Medical; PCP Internal Medicine; Visit Provider Internal Medicine
DX: L40.0 Psoriasis vulgaris (principal); E11.9 Type 2 diabetes mellitus without complications; E78.00 Pure hypercholesterolemia, unspecified; R35.1 Nocturia; K57.90 Diverticulosis of intestine, part unspecified, without perforation or abscess without bleeding; Z12.5 Encounter for screening for malignant neoplasm of prostate; Z79.899 Other long term (current) drug therapy
CPT/HCPCS: 36415; 80053; 80061; 81001; 82043; 82570; 83036; 84153; 85025; 86481

== ENCOUNTER 2023-01-06 10:16 | Outpatient (REF) | payer BC, SELFPAY | END 2023-01-06 10:17 | disposition home or self-care (01) | LOC: HO.LAB 10:16 | PROVIDERS: PCP Internal Medicine; Visit Provider Physician Assistant Medical | DX: L40.0 Psoriasis vulgaris (principal); Z79.899 Other long term (current) drug therapy | CPT/HCPCS: 36415; 86481 ==

== ENCOUNTER 2023-02-18 11:10 | Outpatient (REF) | payer BC, SELFPAY ==
[2023-02-18 14:11] LABS: Estimated Average Glucose 235 mg/dL; Hemoglobin A1c % 9.8 % (<6.0)
[2023-02-18 14:22] LABS: Alanine Aminotransferase 55 U/L (0-40); Albumin Level 4.5 g/dL (3.5-5.0); Alkaline Phosphatase 79 U/L (39-117); Anion Gap 13 (12-20); Aspartate Amino Transferase 24 U/L (5-37); Bilirubin Total 0.3 mg/dL (0.0-1.0); Blood Urea Nitrogen 10 mg/dL (9-16); Calcium 9.5 mg/dL (8.4-10.2); Carbon Dioxide 28 mmol/L (22-29); Chloride 102 mmol/L (96-108); Estimated Glomerular Filt Rate > 60; Glucose Random 290 mg/dL (60-115); Potassium 4.5 mmol/L (3.3-5.1); Sodium 138 mmol/L (135-145); Total Protein 7.5 g/dL (6.5-8.0)
[2023-02-21 16:49] LABS: TS Negative Control Passed; TS Panel A 0; TS Panel B 2; TS Positive Control Passed; TSpotTB Negative (Negative)
== END 2023-02-18 11:11 | disposition home or self-care (01) ==
LOC: HO.HMGCLDS 11:10
PROVIDERS: Absent Provider Physician Assistant Medical; PCP Internal Medicine; Visit Provider Internal Medicine
DX: Z11.1 Encounter for screening for respiratory tuberculosis (principal); L40.0 Psoriasis vulgaris; Z79.899 Other long term (current) drug therapy
CPT/HCPCS: 36415; 80053; 83036; 86481

== ENCOUNTER 2023-09-02 08:36 | Outpatient (REF) | payer BC, SELFPAY ==
[2023-09-02 11:25] LABS: MANUAL DIFF FLAG NO
[2023-09-02 11:33] LABS: Basophils Absolute Auto 0.1 X10*3/uL (0.0-0.2); Basophils Percent Auto 0.7 % (0-2); Eosinophils Absolute Auto 0.1 X10*3/uL (0.0-0.4); Eosinophils Percent Auto 1.6 % (0-4); Hemoglobin 17.7 g/dl (14.0-18.0); Imm Gran Abs Auto 0.06 X10*3/uL (0.00-0.03); Imm Gran Pct Auto 0.7 % (0.0-0.4); Lymphocytes Absolute Auto 2.3 X10*3/uL (1.2-4.9); Mean Corpuscular HGB Conc 34.7 g/dl (31.0-36.0); Mean Corpuscular Hemoglobin 30.7 pg (27.0-33.0); Mean Corpuscular Volume 88.4 fL (80.0-98.0); Mean Platelet Volume 10.7 fL (9.4-12.4); Monocytes Absolute Auto 0.6 X10*3/uL (0.1-1.2); Monocytes Percent Auto 6.9 % (2-11); Neutrophils Absolute Auto 5.2 x10*3/uL (2.0-8.3); Neutrophils Percent Auto 62.1 % (45-73); Platelet Count 207 X10*3/uL (160-400); Red Blood Count 5.77 X10*6/uL (4.60-5.80); Red Cell Distribution Width 13.2 % (11.0-16.0); White Blood Count 8.4 X10*3/uL (4.8-10.8)
[2023-09-02 11:38] LABS: Estimated Average Glucose 212 mg/dL
[2023-09-02 11:49] LABS: Alanine Aminotransferase 26 U/L (0-40); Albumin Level 4.5 g/dL (3.5-5.0); Alkaline Phosphatase 71 U/L (39-117); Anion Gap 12 (12-20); Aspartate Amino Transferase 17 U/L (5-37); Bilirubin Total 0.5 mg/dL (0.0-1.0); Blood Urea Nitrogen 13 mg/dL (9-16); Calcium 9.4 mg/dL (8.4-10.2); Carbon Dioxide 29 mmol/L (22-29); Chloride 104 mmol/L (96-108); Cholesterol 164 mg/dL (<200); Estimated Glomerular Filt Rate > 60; Glucose Fasting 177 mg/dL (60-99); HDL Cholesterol 27 mg/dL (>40); LDL Cholesterol Calculated 66 mg/dL (<100); Potassium 4.8 mmol/L (3.3-5.1); Sodium 140 mmol/L (135-145); Total Protein 7.5 g/dL (6.5-8.0); Triglycerides 359 mg/dL (<150)
[2023-09-02 12:02] LABS: Prostate Specific Antigen 0.56 ng/mL (<0.05-4.0)
[2023-09-02 12:29] LABS: Creatinine Urine 54.24 mg/dL; Microalbum/Creatinine Ratio Ur 9.2 ug/mg cr (<30)
== END 2023-09-02 08:37 | disposition home or self-care (01) ==
LOC: HO.HMGCLDS 08:36
PROVIDERS: PCP Internal Medicine; Visit Provider Internal Medicine
DX: L40.9 Psoriasis, unspecified (principal); E11.9 Type 2 diabetes mellitus without complications; E78.00 Pure hypercholesterolemia, unspecified; Z12.5 Encounter for screening for malignant neoplasm of prostate
CPT/HCPCS: 36415; 80053; 80061; 82043; 82570; 83036; 84153; 85025

== ENCOUNTER 2024-02-24 08:31 | Outpatient (REF) | payer BC, SELFPAY ==
--- OUTSIDE RECORDS SUMMARY | 2024-02-24 08:38 | XMS_ITS | Patient Health Record ---
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 Operator Name Role Phone Ervin Johnson MD Primary Care Provider Leon Wright Unavailable [phone] ALLERGIES No Known Allergies REASON FOR REFERRAL No Information MEDICATIONS Medication SIG (Take, Route, Frequency, Duration) Notes Start Date End Date Status metFORMIN HCl Active IMMUNIZATIONS Vaccine Route Administration Date Status Comme nts Influenza Unknown 11/27/2020 Refused SOCIAL HISTORY Tobacco Use: Social History Observation Description Date Details (start date - stop date) Current Smoker NA - NA Sex Assigned At : Social History Observation Description Sex Assigned At Unknown Tobacco Use/Smoking Question Answer Notes Patient is a current smoker How often do you smoke cigarettes? every day How many cigarettes a day do you smoke? 11-20 How soon after you wake up do you smoke your fir st cigarette? 6-30 minutes Are you interested in quitting? Not ready to melissa t Alcohol Screen Question Answer Notes Did you have a drink containing alcohol in the p ast year? No Points 0 Interpretation Negative PROBLEMS Problem Type ICD Code Onset Dates Problem Status W/U Status Risk SNOMED Code Notes Problem Encounter for screening for malignant neoplasm of colon (Z12.11) Active confirmed 645816074 Problem Preprocedural examination (Z01.818) Active confirmed 687254618818006 Problem Diverticulosis of colon (K57.30) Active confirmed Diverticulosi s of colon (227539515) PLAN OF TREATMENT Future Test Test Name Order Date COLONOSCOPY 11/27/2020 Insurance Providers Payer Name Payer Address Payer Phone Subscriber Number Group Number Insured Name Patient Relationship to Insured Coverage Start Date Coverage End Date [facility] [employer] [address] [place] [address] [id number] KHUSHI TRAMMELL Self - patient is the insured MEDICAL (GENERAL) HISTORY Medical History History ICD Code NIDDM Negative colonoscopy at age 23 Psoriasis Denies [place],CVA,Lung disease,renal disease Surgical History Surgery Date(Month/Year) Appy 2020 Left ankle surgery 15 years ago
[2024-02-24 10:49] LABS: Estimated Average Glucose 134 mg/dL; Hemoglobin A1C 185.2619 umol/L; Hemoglobin A1c % 6.3 % (<6.0); Total Hemoglobin (HGBA1C) 4068.8164 umol/L
[2024-02-24 10:52] LABS: Anion Gap 15 (12-20); Blood Urea Nitrogen 9 mg/dL (9-16); Calcium 9.2 mg/dL (8.4-10.2); Carbon Dioxide 24 mmol/L (22-29); Chloride 105 mmol/L (96-108); Cholesterol 173 mg/dL (<200); Estimated Glomerular Filt Rate > 60; Glucose Random 79 mg/dL (60-115); HDL Cholesterol 29 mg/dL (>40); LDL Cholesterol Calculated 101 mg/dL (<100); Potassium 3.9 mmol/L (3.3-5.1); Sodium 140 mmol/L (135-145); Triglycerides 216 mg/dL (<150)
== END 2024-02-24 08:32 | disposition home or self-care (01) ==
LOC: HO.HMGCLDS 08:31
PROVIDERS: PCP Internal Medicine; Visit Provider Internal Medicine
DX: E11.9 Type 2 diabetes mellitus without complications (principal); L40.9 Psoriasis, unspecified
CPT/HCPCS: 36415; 80048; 80061; 83036

== ENCOUNTER 2024-05-30 13:00 | Outpatient (AMB) | payer BC, SELFPAY ==
--- NOTE | 2024-05-30 13:08 | MHC.PC.OV ---
Vital Signs 05/30/24 13:09 Height 5 ft 11 in Weight 252 lb BMI 35.1 BP 132/74 Respiration 16 Pulse 82 Pulse Source Pulse Oximeter Temp 97.6 F Temp Source Temporal Artery Scan Pulse Oximetry (%) 99 Oxygen Delivery Method Room Air Intake Visit Reasons: Routine Technician Telecommunication Systems Required: No Accompanied by: Self / Same As Patient Allergies No Known Allergies Allergy (Verified 05/30/24 13:08) Tobacco use date assessed: 05/30/24 Dental Screening Dental Screen Date: 05/30/24 Did you have a dental visit in the last 12 months?: Yes Did you have a dental problem in the last 6 months where you did not have access to dental care?: No PFSH Medical History (Updated 05/30/24 @ 13:42 by Edison Simpson MD) Erectile dysfunction COVID-19 vaccine series completed Arthritis Diabetes Psoriasis Surgical History (Updated 05/30/24 @ 13:40 by Edison Simpson MD) H/O colonoscopy (01/16/21) History of ankle surgery Hx of appendectomy History of right inguinal hernia repair Family History (Updated 05/30/24 @ 13:15 by TIAGO Olivier) Father Rectal cancer Mother Breast cancer Social History (Updated 05/30/24 @ 13:15 by TIAGO Olivier) Household Members: Spouse Housing: House Are you a primary patient care technician to a significant other at home: No Do you presently have visiting nurse or other home services: No Alcohol intake: current Alcohol intake frequency: does not drink Patient Tobacco Use Status: Current everyday Tobacco user Tobacco use type: Cigarette Cigarette Packs Per Day: 1 Cigarettes Per Day: 20.0 Years Smoked: 28 service: No Current occupational status: employed Cognitive needs: No Hearing needs: No Vision needs: Yes (reading glasses) Questionnaire PHQ-9 Over the last 2 weeks, how often have you been bothered by any of the following problems? 1. Little interest or pleasure in doing things: not at all 2. Feeling down, depressed, or hopeless: not at all 3. Trouble falling or staying asleep, or sleeping too much: not at all 4. Feeling tired or having little energy: not at all 5. Poor appetite or overeating: not at all 6. Feeling bad about yourself - or that you are a failure or have let yourself or your family down: not at all 7. Trouble concentrating on things, such as reading the newspaper or watching television: not at all 8. Moving or speaking so slowly that other people could have noticed. Or the opposite - being so fidgety or restless that you have been moving around a lot more than usual: not at all 9. Thoughts that you would be better off or of hurting yourself in some way: not at all Total score: 0 Source: Developed by Drs. Leon Velasquez, Rosaura Donnelly, Chuy Javier and colleagues, with an educational kyle from [employer]. Thrive Questionnaire Date Thrive assessed: 05/30/24 I am a: Patient What is your living situation today?: I have a steady place to live Within the past 12 months, did the food you bought not last and you didn't have the money to get more?: Never true Within the past 12 months, did you worry whether your food would run out before you got money to buy more?: Never true Do you have trouble paying for medicines?: No Do you have trouble getting transportation to medical appointments?: No Do you have trouble paying your heating and electricity bill?: No Do you have trouble taking care of your child, family member or friend?: No Do you have trouble with day-to-day activities such as bathing, preparing meals, shopping, managing finances, etc.?: No Are you currently unemployed and looking for a job?: No Are you interested in more education?: No Please select the resources that you would like help with: None THRIVE Score: 0 AUDIT C Alcohol Use Questionnaire (AUDIT-C) 1. How often do you have a drink containing alcohol?: Never 3. How often do you have six or more drinks on one occasion?: Never Total Score: 0 JENNIFER-7 AMB Questionnaire JENNIFER-7 Date JENNIFER - 7 assessed: 05/30/24 Feeling nervous, anxious, or on edge: 0 = Not at all Not being able to stop or control worryin = Not at all Worrying too much about different things: 0 = Not at all Trouble relaxin = Not at all Being so restless that it is hard to sit still: 0 = Not at all Becoming easily annoyed or irritable: 0 = Not at all Feeling afraid as if something awful might happen: 0 = Not at all Total JENNIFER-7 score (0-4 normal; 5-9 mild; 10-14 moderate; 15-21 severe): 0 Source: Developed by Drs. Leon Velasquez, Rosaura Donnelly, Chuy Javier and colleagues, with an educational kyle from [employer]. Physical exam (Primary Care) Vital Signs: Last Vital Signs Temp 97.6 F 05/30/24 13:09 Pulse 82 05/30/24 13:09 Resp 16 05/30/24 13:09 BP 132/74 05/30/24 13:09 Pulse Ox 99 05/30/24 13:09 Oxygen Delivery Method Room Air 05/30/24 13:09 BMI result Body Mass Index 35.1 Tobacco/Smoking Status: Tobacco use Status Tobacco use date assessed 05/30/24 05/30/24 13:16 Patient Tobacco Use Status Current everyday Tobacco 05/30/24 13:16 Tobacco use type Cigarette 05/30/24 13:16 PHQ-9: PHQ-9 Score PHQ-9: Total score 0 05/30/24 13:16 Thrive Assessment: Date of Thrive Assessment Date Thrive assessed 05/30/24 05/30/24 13:16 Coding Level of Care Code New Pt Level 4 (81048) Complex EM visit Add On G2211 Diagnoses Diabetes E11.9 Erectile dysfunction N52.9 Psoriasis L40.9 Assessment & Plan Assessment & Plan (1) Diabetes: Comment: Type 2-dx 03/2020-taking metformin QAM-glucose usually 160's to 180's Code(s): E11.9 - Type 2 diabetes mellitus without complications Category: Medical Plan: A1c in range. Continue current medications (2) Erectile dysfunction: Code(s): N52.9 - Male erectile dysfunction, unspecified Category: Medical Plan: Gwendolyns called in. Take the medication one hour prior to sexual activitiy (3) Psoriasis: Code(s): L40.9 - Psoriasis, unspecified Category: Medical Plan: Referral made. Plan History of Present Illness The patient is a 53-year-old male presenting with erectile dysfunction that has been ongoing for several months, consistently affecting his ability to maintain erections during intercourse. No pharmacological interventions have been attempted to date, and potential treatments such as sildenafil were discussed during the visit. The patient has been for 30 years, and while erectile dysfunction is recognized as an issue, it is approached with a pragmatic attitude. Furthermore, the patient has a long-standing case of psoriasis, managed at [facility] under the care of Dr. Mina for two decades. Referrals are required thrice a year to maintain treatment continuity. The patient is scheduled for a dermatology appointment and expressed logistical concerns regarding the management of insurance referrals. The patient's medical history is notable for Type 2 Diabetes Mellitus, with recent laboratory results showing well-controlled glycemic levels. The patient does not require immediate medication refills but is attentive to diabetes management. Social History - Employment: Works at a [employer] for [employer]. - Activity: Engages in physical activities related to job responsibilities, including frequent staircase climbing and extensive walking throughout a [id number] facility. - Dietary Habits: Self-reports unspecified dietary habits but mentions a weight loss of about 30 pounds over eight months linked to increased physical activity. 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 Review of Systems - Genitourinary: Reports erectile dysfunction with difficulty maintaining erection. Physical Exam General: Appearance normal, both eyes and all related structures Nutritional Appearance: Well nourished, lost about 30 pounds in the past eight months Orientation/consciousness: Patient oriented x3 Limitations: No limitations Head: Normal to inspection Neck: Normal visual inspection Chest: Normal palpation of entire chest wall Respiratory: Normal respiratory effort Neurology: Patient oriented x3 Results - Labs: Hemoglobin A1c within target range. Plan I discussed pharmacological intervention for erectile dysfunction, recommending the use of sildenafil, and provided a prescription for the medication. It is understood that the patient will evaluate the medication's efficacy and contact me for further guidance if needed. I also ensured a referral for psoriasis management at [facility] and advised the patient on the logistics of documentation submission to avoid disruption in treatment. Regarding Type 2 Diabetes Mellitus, the patient is encouraged to maintain regular glucose monitoring and medication adherence, with follow-up requests to be initiated as required for refills. Patient was informed and verbally consented to the use of an ambient scribe for clinic note documentation during this visit. Discussion Notes During our discussion, I informed the patient of the prospect of using sildenafil for erectile dysfunction, explaining the pharmacodynamics, expected benefits and potential side effects. The patient was amenable to trying this treatment. I confirmed the execution of a referral for psoriasis management, emphasizing its importance to prevent financial impact due to absent referrals before his dermatology appointment next week. We discussed the logistic changes in referral submission since the hospital acquisition of Dr. Andrew?s practice. Regarding diabetes, the patient was informed about the current positive control of his condition and the necessity for ongoing monitoring. No adjustments were required for his diabetic medications at this time. I encouraged the patient to maintain communication for any changes in health status or medication needs, and addressed queries regarding the management of his conditions with reassurance. Patient Instructions - Begin sildenafil 50 mg, taken one hour prior to planned sexual activity. - For psoriasis management, ensure referral documentation is completed as discussed. - Monitor blood glucose regularly and maintain your current diabetes care regimen. - Contact the pharmacy for diabetic medication refills when needed and inform me if difficulties arise. - Attend the scheduled dermatology appointment and ensure necessary paperwork is in place. - Maintain regular physical activity as part of your job and lifestyle adjustments. Orders: Referrals Dermatology Referral L40.9 - Psoriasis, unspecified Medications: New tadalafil (Cialis) One hour before sexual activity 5 mg PO DAILY 14 tabs 0RF
[2024-05-30 13:09] VITALS: BP 132/74; PULSE 82; RESP 16; TEMP 36.4; O2SAT 99; BMI 35.1
--- OUTSIDE RECORDS SUMMARY | 2024-05-30 15:23 | XMS_ITS | Patient Health Record ---
Author Organization [facility] Address [address] [place] [address] Care Team Providers Care Potable Water Treatment Operator Name Role Phone Ervin Johnson MD Primary Care Provider Leon Wright Unavailable [phone] Allergies No Known Allergies Reason For Referral No Information Medications Medication SIG (Take, Route, Frequency, Duration) Notes Start Date End Date Status metFORMIN HCl Active Immunizations Vaccine Route Administration Date Status Comme nts Influenza Unknown 11/27/2020 Refused Social History Tobacco Use: Social History Observation Description Date Details (start date - stop date) Current Smoker NA - NA Tobacco Use/Smoking Question Answer Notes Patient is [...] ast year? No Points 0 Interpretation Negative Section Notes: Smoker 1 ppd, no alcohol Problems Problem Type SNOMED Code ICD Code Onset Dates Problem Status W/U Status Risk Notes Problem [id number] Encounter for screening for malignant neoplasm of colon (Z12.11) Active confirmed Problem [id number] Preprocedural examination (Z01.818) Active confirmed Problem Diverticulosis of colon (919162822) Diverticulosis of colon (K57.30) Active confirmed Plan Of Treatment Future Test Test Name Order Date COLONOSCOPY 11/27/2020 Insurance Providers Payer Name Payer Address Payer Phone Subscriber Number Group Number Insured Name Patient Relationship to Insured Coverage Start Date Coverage End Date [facility] [address] [place] [address] [id number] KHUSHI TRAMMELL Self - patient is the insured Medical (General) History Medical History History ICD Code NIDDM Negative colonoscopy at age 23 Psoriasis Denies [place],CVA,Lung disease,renal disease Surgical History Surgery Date(Month/Year) Appy 2020 Left ankle surgery 15 years ago
== END 2024-05-30 13:49 | disposition home or self-care (01) ==
LOC: HO.HMCHD 13:00
PROVIDERS: PCP Internal Medicine; Visit Provider Internal Medicine
DX: E11.9 Type 2 diabetes mellitus without complications (principal); N52.9 Male erectile dysfunction, unspecified; L40.9 Psoriasis, unspecified

== ENCOUNTER 2024-07-27 08:22 | Outpatient (REF) | payer BC, SELFPAY ==
--- OUTSIDE RECORDS SUMMARY | 2024-07-27 08:36 | XMS_ITS | Patient Health Record ---
Author Organization [facility] Address [address] [place] [address] Care Team Providers Care Wine Cellar Worker Name Role Phone Ervin Johnson MD Primary Care Provider Leon Wright Unavailable [phone] Allergies No Known Allergies Reason For Referral [...] Problem Status W/U Status Risk Notes Problem [id number] Encounter for screening for malignant neoplasm of colon (Z12.11) Active confirmed Problem [id number] Preprocedural examination (Z01.818) Active confirmed Problem Diverticulosis of colon (055066965) Diverticulosis of colon (K57.30) Active confirmed Plan Of Treatment Future Test Test Name Order Date COLONOSCOPY 11/27/2020 Insurance Providers Payer Name Payer Address Payer Phone Subscriber Number Group Number Insured Name Patient Relationship to Insured Coverage Start Date Coverage End Date [facility] [address] [place] [address] [id number] KHUSHI TRAMMELL Self - patient is the insured Medical (General) History Medical History History ICD Code NIDDM Negative colonoscopy at age 23 Psoriasis Denies [place],CVA,Lung disease,renal disease Surgical History Surgery Date(Month/Year) Appy 2020 Left ankle surgery 15 years ago
[2024-07-30 17:07] LABS: TS Negative Control Passed; TS Panel A 0; TS Panel B 0; TS Positive Control Passed; TSpotTB Negative (Negative)
== END 2024-07-27 08:23 | disposition home or self-care (01) ==
LOC: HO.HMGCLDS 08:22
PROVIDERS: PCP Internal Medicine; Visit Provider Physician Assistant Medical
DX: L40.0 Psoriasis vulgaris (principal); Z79.899 Other long term (current) drug therapy
CPT/HCPCS: 36415; 86481

== ENCOUNTER 2024-08-29 13:32 | Outpatient (AMB) | payer BC, SELFPAY ==
--- NOTE | 2024-08-29 13:42 | A.OFFPC_ITS ---
Vital Signs 08/29/24 13:47 Height 5 ft 11 in Weight 115.212 kg BMI 35.4 Pulse 75 Pulse Source Pulse Oximeter Temp 97.3 F Temp Source Temporal Artery Scan Pulse Oximetry (%) 96 Oxygen Delivery Method Room Air Intake Visit Reasons: 3 Month F/U DM Check Director Of Special Events Required: No Accompanied by: Self / Same As Patient Allergies No Known Allergies Allergy (Verified 08/29/24 13:43) Medication List - Last Reconciled 08/29/24 by CARMELITA Lee empagliflozin (Jardiance) 25 mg PO DAILY glipizide 5 mg PO DAILY metformin 500 mg PO QAM tadalafil (Cialis) 5 mg PO DAILY Tobacco use date assessed: 05/30/24 Dental Screening Dental Screen Date: 05/30/24 HPI HPI Comments History of Present Illness Details 54-year-old male with history of type 2 diabetes, psoriasis, venous stasis disease, class 2 obesity, and ongoing cigarette smoking presents to the office today for management of chronic conditions. Type 2 diabetes-last hemoglobin A1c from 02/2024 was 6.3%. He is not checking his glucose levels. He reports he only eats about 1 meal per day and this is often heavy in carbohydrates such as pasta and bread as well as meat. He otherwise does not eat much secondary to a very busy work schedule. Complicated by erectile dysfunction Chronic venous stasis-stable Psoriasis-follows with [facility]. 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 Diet as above. He is quite active at work Cigarette smoking-continue smoking 1 pack of cigarettes on a daily basis. Not interested in quitting. He is following for lung cancer screening at [facility] [address] maintenance: Last colonoscopy 2020 with 10 year follow-up advised. Dr. Santillan Due for PSA Lung cancer screening as above ROS: General: No fevers, malaise, unintentional weight loss HEENT: No blurred vision, diplopia. No sore throat, nasal congestion, rhinorrhea, sinus pain, ear pain Cardiovascular: No chest pain, palpitations, or leg edema Respiratory: No shortness of breath, wheezing, cough Skin:see hpi EXAM: Constitutional - Awake and Alert, No apparent distress Eyes - PERRL Cardiovascular - S1S2, RRR, No edema Respiratory - Normal lung expansion, Normal respiratory effort, No respiratory distress, CTA bilaterally Extremities - no calf tenderness bilaterally, no swelling Skin - Warm/Dry Neurological - Alert & oriented x3 Psychological - Appropriate affect PFSH Medical History (Updated 08/29/24 @ 14:11 by CARMELITA Lee) Cigarette smoker Erectile dysfunction COVID-19 vaccine series completed Arthritis Diabetes Psoriasis Surgical History (Updated 07/04/24 @ 14:05 by Jodi Heaton) H/O colonoscopy (01/16/21) History of ankle surgery Hx of appendectomy History of right inguinal hernia repair Family History (Updated 05/30/24 @ 13:15 by TIAGO Olivier) Father Rectal cancer Mother Breast cancer Social History (Updated 05/30/24 @ 13:15 by TIAGO Olivier) Household Members: Spouse Housing: House Are you a primary director of managed care to a significant other at home: No Do you presently have visiting nurse or other home services: No Alcohol intake: current Alcohol intake frequency: does not drink Patient Tobacco Use Status: Current everyday Tobacco user Tobacco use type: Cigarette Cigarette Packs Per Day: 1 Cigarettes Per Day: 20.0 Years Smoked: 28 service: No Current occupational status: employed Cognitive needs: No Hearing needs: No Vision needs: Yes (reading glasses) Questionnaire Thrive Questionnaire Date Thrive assessed: 05/30/24 JENNIFER-7 AMB Questionnaire JENNIFER-7 Date JENNIFER - 7 assessed: 05/30/24 Source: Developed by Drs. Leon Velasquez, Rosaura Donnelly, Chuy Javier and colleagues, with an educational kyle from [employer]. Physical exam (Primary Care) Vital Signs: Last Vital Signs Temp 97.3 F 08/29/24 13:47 Pulse 75 08/29/24 13:47 Pulse Ox 96 08/29/24 13:47 Oxygen Delivery Method Room Air 08/29/24 13:47 BMI result Body Mass Index 35.4 Tobacco/Smoking Status: Tobacco use Status Tobacco use date assessed 05/30/24 08/29/24 13:48 Patient Tobacco Use Status Current everyday Tobacco 08/29/24 13:48 Tobacco use type Cigarette 08/29/24 13:48 Thrive Assessment: Date of Thrive Assessment Date Thrive assessed 05/30/24 08/29/24 13:48 Coding Level of Care Code Est Pt Level 4 (21386) Complex EM visit Add On G2211 Diagnoses Diabetes E11.9 Psoriasis L40.9 Obesity E66.9 Erectile dysfunction associated with type 2 diabetes mellitus E11.69; N52.1 Cigarette smoker F17.210 Assessment & Plan Assessment & Plan (1) Diabetes: Comment: Type 2-dx 03/2020-taking metformin QAM-glucose usually 160's to 180's Code(s): E11.9 - Type 2 diabetes mellitus without complications Category: Medical Plan: Previously controlled with A1c of 6.3%. Update hemoglobin A1c today. Continue metformin 500 mg daily, glipizide 5 mg daily and Jardiance. Diabetic diet encouraged. Continue with diabetic eye exams. (2) Psoriasis: Code(s): L40.9 - Psoriasis, unspecified Category: Medical Plan: Uncontrolled. Continue following of [facility]. Continue with topical steroid cream for the time being (3) Obesity: Code(s): E66.9 - Obesity, unspecified Category: Medical Plan: Weight loss efforts encouraged. Recommend diet lower in calories with increased protein, vegetables, fruits and limit refined sugars and simple carbohydrates as well as highly processed foods. Recommend increased exercise (4) Erectile dysfunction associated with type 2 diabetes mellitus: Code(s): E11.69 - Type 2 diabetes mellitus with other specified complication; N52.1 - Erectile dysfunction due to diseases classified elsewhere Plan: Stable. Continue Cialis as needed (5) Cigarette smoker: Code(s): F17.210 - Nicotine dependence, cigarettes, uncomplicated Category: Medical Plan: Not interested in smoking, cessation strongly advised. We will request records for lung cancer screening and is advised to continue with the scans Plan Follow-up in 4 months. Labs to be completed today as well as prior to next visit Orders: Orders Basic Metabolic Panel Today E11.9 - Type 2 diabetes mellitus without complications, L40.9 - Psoriasis, unspecified, N52.9 - Male erectile dysfunction, unspecified Hemoglobin A1c Today E11.9 - Type 2 diabetes mellitus without complications, L40.9 - Psoriasis, unspecified, N52.9 - Male erectile dysfunction, unspecified Hemoglobin A1c 3 Months E11.9 - Type 2 diabetes mellitus without complications Lipid Panel Today E11.9 - Type 2 diabetes mellitus without complications, L40.9 - Psoriasis, unspecified, N52.9 - Male erectile dysfunction, unspecified Liver Panel Today E11.9 - Type 2 diabetes mellitus without complications, L40.9 - Psoriasis, unspecified, N52.9 - Male erectile dysfunction, unspecified Prostate Specific Antigen Today E11.9 - Type 2 diabetes mellitus without complications, L40.9 - Psoriasis, unspecified, N52.9 - Male erectile dysfunction, unspecified Medications: New empagliflozin (Jardiance) 25 mg PO DAILY 90 tabs 1RF
[2024-08-29 13:47] VITALS: PULSE 75; TEMP 36.3; O2SAT 96; BMI 35.4
--- OUTSIDE RECORDS SUMMARY | 2024-08-29 15:31 | XMS_ITS | Patient Health Record ---
Author Organization [facility] Address [address] [place] [address] Care Team Providers Care Embroidery Worker Name Role Phone Ervin Johnson MD Primary Care Provider Leon Wright Unavailable [phone] Allergies No Known Allergies Reason For Referral [...] Problem Status W/U Status Risk Notes Problem 594303925 Encounter for screening for malignant neoplasm of colon (Z12.11) Active confirmed Problem 261003490891757 Preprocedural examination (Z01.818) Active confirmed Problem Diverticulosis of colon (455836030) Diverticulosis of colon (K57.30) Active confirmed Plan Of Treatment Future Test Test Name Order Date COLONOSCOPY 11/27/2020 Insurance Providers Payer Name Payer Address Payer Phone Subscriber Number Group Number Insured Name Patient Relationship to Insured Coverage Start Date Coverage End Date [facility] [address] [place] [address] [phone] [id number] KHUSHI TRAMMELL Self - patient is the insured Medical (General) History Medical History History ICD Code NIDDM Negative colonoscopy at age 23 Psoriasis Denies [place],CVA,Lung disease,renal disease Surgical History Surgery Date(Month/Year) Appy 2020 Left ankle surgery 15 years ago
== END 2024-08-29 14:08 | disposition home or self-care (01) ==
LOC: HO.HMCHD 13:33
PROVIDERS: PCP Internal Medicine; Visit Provider Physician Assistant
DX: E11.9 Type 2 diabetes mellitus without complications (principal); L40.9 Psoriasis, unspecified; E66.9 Obesity, unspecified; E11.69 Type 2 diabetes mellitus with other specified complication; N52.1 Erectile dysfunction due to diseases classified elsewhere; F17.210 Nicotine dependence, cigarettes, uncomplicated

== ENCOUNTER → 2024-08-29 13:32 | Outpatient (BNVA) | payer BC, SELFPAY | PROVIDERS: PCP Internal Medicine; Visit Provider Physician Assistant ==

== ENCOUNTER 2024-12-07 23:01 | Emergency (ER) | payer OTHER, SELFPAY ==
[2024-12-07 23:03] VITALS: BP 156/84; PULSE 75; RESP 20; TEMP 35.9; O2SAT 98; BMI 34.2
--- OUTSIDE RECORDS SUMMARY | 2024-12-07 23:22 | XMS_ITS | Patient Health Record ---
Author Organization [facility] Address [address] [place] [address] Care Team Providers Care Take Up Operator Name Role Phone Alex (RETIRED) Ervin FISHMAN Primary Care Provide r Leon Ron Unavailable [phone] Allergies No Known Allergies Reason For Referral [...] Problem Status W/U Status Risk Notes Problem 473633296 Encounter for screening for malignant neoplasm of colon (Z12.11) Active confirmed Problem 173177816178991 Preprocedural examination (Z01.818) Active confirmed Problem Diverticulosis of colon (713562088) Diverticulosis of colon (K57.30) Active confirmed Plan Of Treatment Future Test Test Name Order Date COLONOSCOPY 11/27/2020 Insurance Providers Payer Name Payer Address Payer Phone Subscriber Number Group Number Insured Name Patient Relationship to Insured Coverage Start Date Coverage End Date [facility] PROFESSIONAL CLAIMS [address] [place] [address] [id number] KHUSHI TRAMMELL Self - patient is the insured Medical (General) History Medical History History ICD Code NIDDM Negative colonoscopy at age 23 Psoriasis Denies [place],CVA,Lung disease,renal disease Surgical History Surgery Date(Month/Year) Appy 2020 Left ankle surgery 15 years ago
--- NOTE | 2024-12-07 23:56 | PC.NURSE ---
Assumed care of pt, presents with a laceration to left lateral aspect of the eye, pt was tightening a machine at work with a crowbar and the bar kicked back struck pt on the side of the face, -LOC, no blood thinners, pt states that he did not fall the incident, bleeding is controlled and wound appears with approximate edges, aaox4, nad, pending provider eval
--- NOTE | 2024-12-08 00:11 | ED_ITS ---
HPI - General Adult General Chief complaint: Wound/Laceration Stated complaint: Workman Comp, head wound from crowbar Time Seen by Provider: 12/08/24 00:10 Source: patient Mode of arrival: ambulatory Limitations: no limitations History of Present Illness ED Provider: Omkar MAE HPI narrative: The patient is a 54-year-old male presenting to the ED for evaluation of a laceration to his left oriental orthodox. Patient reports he was at work, attempting to lift something with a crowbar when the crowbar slipped and struck him in the left side of the head. The patient denies loss of consciousness, anticoagulation, painful or impaired EOMs, vision changes, or other acute somatic complaint. The patient denies other recent traumatic injury. The patient does not know the date of his last tetanus shot. Related Data Home Medications ?Medication ?Instructions ?Recorded ?Confirmed metformin 500 mg tablet 500 mg PO QAM 01/12/2108/29 glipizide 5 mg tablet 5 mg PO DAILY 08/29/2408/29 Previous Rx's ?Medication ?Instructions ?Recorded tadalafil 5 mg tablet (Cialis) 5 mg PO DAILY #14 tabs 08/26/24 empagliflozin 25 mg tablet 25 mg PO DAILY #90 tabs (Jardiance) Allergies Allergy/AdvReac Type Severity Reaction Status Date / Time No Known Allergies Allergy Verified 12/07/24 23:05 Review of Systems Review of Systems: Yes all other systems are reviewed and are negative FOR[facility]LY [facility] Past Medical History Medical History (Updated 12/08/24 @ 00:28 by Omkar Hammond PA-C) Cigarette smoker Erectile dysfunction COVID-19 vaccine series completed Arthritis Diabetes Psoriasis Surgical History (Updated 07/04/24 @ 14:05 by Jodi Heaton) H/O colonoscopy (01/16/21) History of ankle surgery Hx of appendectomy History of right inguinal hernia repair Family History Family History (Updated 05/30/24 @ 13:15 by TIAGO Olivier) Father Rectal cancer Mother Breast cancer Social History Social History (Updated 05/30/24 @ 13:15 by TIAGO Olivier) Household Members: Spouse Housing: House Are you a primary urgent care technician to a significant other at home: No Do you presently have visiting nurse or other home services: No Alcohol intake: current Alcohol intake frequency: does not drink Patient Tobacco Use Status: Current everyday Tobacco user Tobacco use type: Cigarette Cigarette Packs Per Day: 1 Cigarettes Per Day: 20.0 Years Smoked: 28 Advance Directives: No Advance Directives Information Provided: No service: No Current occupational status: employed Cognitive needs: No Hearing needs: No Vision needs: Yes (reading glasses) Physical Exam ED Vital Signs: Vital Signs - 24 hr 12/07/24 23:03 Temperature 96.7 F L Pulse Rate 75 Respiratory Rate 20 Blood Pressure 156/84 H Pulse Oximetry 98 Oxygen Delivery Method Room Air BMI result Body Mass Index 34.2 CONSTITUTIONAL: The patient appears non-toxic, well nourished and in no acute distress. Vital signs as documented. HEAD: There is a 1.5 cm curvilinear laceration noted to the left oriental orthodox, no crepitus or bony tenderness surrounding the laceration. Head is otherwise atraumatic, normocephalic. EYES: EOMs grossly intact, pupils equal, conjunctiva clear, no exudate. ENT: Nares patent, no discharge. Airway patent, no audible stridor, visible mucosa is pink and moist without noted lesions. NECK: trachea is midline, no obvious masses or gross abnormalities. CHEST: Symmetric movement, normal appearance. LUNGS: Non-labored work of breathing. CARDIAC: No evidence of hypoperfusion. ABDOMEN: Nondistended, no obvious injury. : Deferred. EXTREMITIES: Moves all extremities spontaneously without reported pain. No obvious injury or deformity noted. NEURO: Alert and oriented x3, CN II-XII appear grossly intact. Cerebellar Functioning grossly intact. Speech clear and appropriate. SKIN: Warm, dry, color appropriate. No rashes or lesions noted. Medications Administered Discontinued Medications Generic Name Dose Route Start Last Admin Trade Name Freq PRN Reason Stop Dose Admin Diphtheria/Tetanus/Acell Pertussis 0.5 ml 12/08/24 00:22 12/08/24 00:40 Diphth,Pertus(Acell),Tet Adult 0.5 Ml Syringe IM 12/08/24 00:23 0.5 ml .ONCE ONE Administration Lidocaine HCl 5 ml 12/08/24 00:22 12/08/24 00:41 Lidocaine Hcl 1 % Mpf 5 Ml Vial INFILTRATI 12/08/24 00:23 5 ml ONCE ONE Administration Procedures Laceration Laceration 1: Site: scalp Side (If applicable): left Size (cm): 1.5 Description: linear (Curvilinear) and clean Depth: simple, single layer Local Anesthetic: lidocaine 1% Amount of anesthesia used (mL): 4 Pre-repair: wound explored, irrigated extensively and deep structures intact Skin layer closed with: nylon Size (cm): 5-0 Number of sutures: 3 Technique: simple, interrupted Medical Decision Making Medical Decision Making MDM Narrative: 12:23 AM 12/08/2024 (Kalpana MAE): The patient is a 54-year-old male presenting to the ED for evaluation of a laceration to his left oriental orthodox. Patient reports he was at work, attempting to lift something with a crowbar when the crowbar slipped and struck him in the left side of the head. The patient denies loss of consciousness, anticoagulation, painful or impaired EOMs, vision changes, or other acute somatic complaint. The patient denies other recent traumatic injury. The patient does not know the date of his last tetanus shot. On exam the patient has a 1.5 cm curvilinear laceration noted to the left oriental orthodox. Hemostasis noted. The patient is otherwise well-appearing and without complaint. Patient will have laceration repaired, tetanus updated, and patient will be discharged with laceration care instructions. Admission/Observation Consideration of admission/observation: Escalation of care including admission/observation considered Discharge Plan Discharge Clinical Impression: Laceration Patient Disposition: Home, Self-Care Instructions: Laceration (ED), Head Laceration (ED) Additional Instructions: Thank you for choosing [facility]'s Emergency Department for your care today. Your laceration today appears noncomplicated. The laceration was repaired with nonabsorbable sutures which will need to be removed in 5-7 days. Please return to the emergency department or follow-up with your primary care provider for removal of sutures. Please apply bacitracin and a clean dry dressing to the laceration twice daily for the first 2-3 days. Then please keep the area clean and dry, but uncovered and exposed to the air to allow the laceration to heal. While it is perfectly acceptable to allow water to run over the sutures while showering, please do not swim, or submerge the laceration in standing water until the sutures are removed. You may take alternating (staggered) doses of ibuprofen 600mg and Tylenol 1000mg every 4 hours as needed for any additional pain. If you do not have a primary care physician, please call the [facility] at [phone] to establish a new primary care physician. While waiting to establish your new primary care physician, you can call our Walk-in Care [facility] at [phone] for non-emergency needs. Please return to the emergency department if you develop any uncontrollable bleeding, re-opening of your wound, redness advancing >1-2 cm away from your wound, or white milky discharge from your wound. Please also return if you expe rience any other new or worsening symptoms or concerns. Prescriptions: No Action tadalafil [Cialis] 5 mg tablet 5 mg PO DAILY Qty: 14 1RF Rx Instructions: One hour before sexual activity metformin 500 mg tablet 500 mg PO QAM glipizide 5 mg tablet 5 mg PO DAILY Jardiance 25 mg tablet 25 mg PO DAILY Qty: 90 1RF Referrals: Edison Simpson MD [Primary Care Provider, Internal Medicine] Clinical Impression: Laceration Print Language: Upper Sorbian
[2024-12-08] MEDS: Diphth,Pertus(ACell),Tet Adult 0.5 ML SYRINGE IM (00:40)
[2024-12-08] MEDS: Lidocaine HCl 1 % MPF 5 ML VIAL INFILTRATI (00:41)
[2024-12-08 01:14] VITALS: BP 123/70; PULSE 54; RESP 18; TEMP 36.7; O2SAT 97
[2024-12-08 01:36] VITALS: BP 123/70; PULSE 54; RESP 18; TEMP 36.7; O2SAT 97
== END 2024-12-08 01:41 | disposition home or self-care (01) ==
PROVIDERS: Emergency Provider Emergency Medicine; PCP Internal Medicine
DX: S01.81XA Laceration without foreign body of other part of head, initial encounter (principal); L40.9 Psoriasis, unspecified; E11.9 Type 2 diabetes mellitus without complications; F17.210 Nicotine dependence, cigarettes, uncomplicated; W20.8XXA Other cause of strike by thrown, projected or falling object, initial encounter; Y93.9 Activity, unspecified; Y92.9 Unspecified place or not applicable; Y99.0 Civilian activity done for income or pay; Z23 Encounter for immunization; Z79.899 Other long term (current) drug therapy
CPT/HCPCS: 12001; 90471; 90715; 99284; J2003

== ENCOUNTER 2025-01-22 10:38 | Outpatient (REF) | payer BC, SELFPAY ==
--- OUTSIDE RECORDS SUMMARY | 2025-01-22 12:17 | XMS_ITS | Patient Health Record ---
Author Organization [facility] Address [address] [place] [address] Care Team Providers Care [facility] Specialist Name Role Phone Alex (RETIRED) Ervin FISHMAN Primary Care Provide r Leon Ron Unavailable [phone] Allergies No Known Allergies Reason For Referral [...] Problem Status W/U Status Risk Notes Problem Screening for malignant neoplasm of colon (425173348) Encounter for screening for malignant neoplasm of colon (Z12.11) Active confirmed Problem Preprocedural examination (304323530189438) Preprocedural examination (Z01.818) Active confirmed Problem Diverticulosis of colon (323242537) Diverticulosis of colon (K57.30) Active confirmed Plan Of Treatment Future Test Test Name Order Date COLONOSCOPY 11/27/2020 Insurance Providers Payer Name Payer Address Payer Phone Subscriber Number Group Number Insured Name Patient Relationship to Insured Coverage Start Date Coverage End Date [facility] [employer] [address] [place] [address] [id number] KHUSHI TRAMMELL Self - patient is the insured Medical (General) History Medical History History ICD Code NIDDM Negative colonoscopy at age 23 Psoriasis Denies RI,CVA,Lung disease,renal disease Surgical History Surgery Date(Month/Year) Appy 2020 Left ankle surgery 15 years ago
[2025-01-22 13:19] LABS: Alanine Aminotransferase 14 U/L (0-40); Albumin Level 4.9 g/dL (3.5-5.0); Alkaline Phosphatase 60 U/L (39-117); Anion Gap 11 (12-20); Aspartate Amino Transferase 22 U/L (5-37); Blood Urea Nitrogen 11 mg/dL (9-16); Calcium 9.3 mg/dL (8.4-10.2); Carbon Dioxide 29 mmol/L (22-29); Chloride 104 mmol/L (96-108); Cholesterol 189 mg/dL (<200); Estimated Glomerular Filt Rate > 60; HDL Cholesterol 29 mg/dL (>40); Potassium 4.1 mmol/L (3.3-5.1); Sodium 140 mmol/L (135-145); Total Protein 7.6 g/dL (6.5-8.0); Triglycerides 215 mg/dL (<150)
[2025-01-22 13:38] LABS: Prostate Specific Antigen 0.59 ng/mL (<0.05-4.0)
== END 2025-01-22 10:39 | disposition home or self-care (01) ==
LOC: HO.HMGCLDS 10:38
PROVIDERS: PCP Physician Assistant; Visit Provider Physician Assistant
DX: Z12.5 Encounter for screening for malignant neoplasm of prostate (principal); E11.9 Type 2 diabetes mellitus without complications; L40.9 Psoriasis, unspecified; N52.9 Male erectile dysfunction, unspecified
CPT/HCPCS: 36415; 80048; 80061; 80076; 83036; 84153

== ENCOUNTER 2025-02-20 08:54 | Outpatient (AMB) | payer BC, SELFPAY ==
--- NOTE | 2025-02-20 08:56 | A.OFFPC_ITS ---
Vital Signs 02/20/25 09:01 Height 5 ft 11 in Weight 110.336 kg BMI 33.9 BP 118/60 Respiration 16 Pulse 64 Pulse Source Pulse Oximeter Temp 97.3 F Temp Source Temporal Artery Scan Pulse Oximetry (%) 98 Oxygen Delivery Method Room Air Intake Visit Reasons: A1C Check up - see comments Incoming Inspector Required: No Accompanied by: Self / Same As Patient Allergies No Known Allergies Allergy (Verified 02/20/25 08:56) Tobacco use date assessed: 05/30/24 Dental Screening Dental Screen Date: 05/30/24 HPI HPI Comments History of Present Illness Details 54-year-old male with history of type 2 diabetes, psoriasis, venous stasis disease, class 2 obesity, and ongoing cigarette smoking presents to the office today for management of chronic conditions. Type 2 diabetes-last hemoglobin with erectile dysfunction- A1c from 02/2024 was 5.9%. He is not checking his glucose levels. He has made changes to his diet he has been strict about avoiding refined sugar. He is also using Sinemet and turmeric. He does continue on glipizide 5 mg daily as well as metformin 500 mg daily. He is using Cialis Osteoarthritis multiple joints-reports pain in the hips bilaterally, knees bilaterally, and of the left ankle. He reports he had a serious fracture of the left ankle in childhood requiring multiple surgeries. He is able to ambulate but does still have significant pain. He reports overall this is manageable and is not interested in referral to Orthopedics at this time. Reports if pain is severe he uses Motrin with good effect. Chronic venous stasis-stable Psoriasis-follows with [facility], last seen 1 year ago but states he does still need an updated referral. He is using Cosentyx. Class 2 obesity-has lost over 25 lb. Diet as above. He is quite active at work. BMI is currently 33.9. Reports his goal weight is 225 lb. Cigarette smoking-continue smoking 1 pack of cigarettes on a daily basis. Not interested in quitting. He is following for lung cancer screening at [facility] [[email or web address]] but is overdue Health maintenance: Last colonoscopy 2020 with 10 year follow-up advised. Dr. Santillan Due for PSA Lung cancer screening as above ROS: General: No fevers, malaise, unintentional weight loss HEENT: No blurred vision, diplopia. No sore throat, nasal congestion, rhinorrhea, sinus pain, ear pain Cardiovascular: No chest pain, palpitations, or leg edema. See HPI Respiratory: No shortness of breath, wheezing, cough MSK: See HPI Skin:see hpi EXAM: Constitutional - Awake and Alert, No apparent distress Eyes - PERRL Cardiovascular - S1S2, RRR, No edema Respiratory - Normal lung expansion, Normal respiratory effort, No respiratory distress, CTA bilaterally Extremities - no calf tenderness bilaterally, no swelling Skin - Warm/Dry Neurological - Alert & oriented x3 Psychological - Appropriate affect PFSH Medical History (Updated 02/20/25 @ 09:28 by CARMELITA Lee) HLD (hyperlipidemia) Cigarette smoker Erectile dysfunction COVID-19 vaccine series completed Arthritis Diabetes Psoriasis Surgical History (Updated 07/04/24 @ 14:05 by Jodi Heaton) H/O colonoscopy (01/16/21) History of ankle surgery Hx of appendectomy History of right inguinal hernia repair Family History (Updated 05/30/24 @ 13:15 by TIAGO Olivier) Father Rectal cancer Mother Breast cancer Social History (Updated 05/30/24 @ 13:15 by TIAGO Olivier) Household Members: Spouse Housing: House Are you a primary hospice care sales consultant to a significant other at home: No Do you presently have visiting nurse or other home services: No Alcohol intake: current Alcohol intake frequency: does not drink Patient Tobacco Use Status: Current everyday Tobacco user Tobacco use type: Cigarette Cigarette Packs Per Day: 1 Cigarettes Per Day: 20.0 Years Smoked: 28 service: No Current occupational status: employed Cognitive needs: No Hearing needs: No Vision needs: Yes (reading glasses) Questionnaire PHQ-9 Over the last 2 weeks, how often have you been bothered by any of the following problems? 1. Little interest or pleasure in doing things: not at all 2. Feeling down, depressed, or hopeless: not at all 3. Trouble falling or staying asleep, or sleeping too much: not at all 4. Feeling tired or having little energy: not at all 5. Poor appetite or overeating: not at all 6. Feeling bad about yourself - or that you are a failure or have let yourself or your family down: not at all 7. Trouble concentrating on things, such as reading the newspaper or watching television: not at all 8. Moving or speaking so slowly that other people could have noticed. Or the opposite - being so fidgety or restless that you have been moving around a lot more than usual: not at all 9. Thoughts that you would be better off or of hurting yourself in some way: not at all Total score: 0 Depression Screening Interpretation: Negative Depression Screening Done: Yes 03643 - PHQ-9 Billing: Yes Source: Developed by Drs. Leon Velasquez, Rosaura Donnelly, Chuy Javier and colleagues, with an educational kyle from [employer]. Thrive Questionnaire Date Thrive assessed: 05/30/24 I am a: Patient What is your living situation today?: I have a steady place to live Within the past 12 months, did the food you bought not last and you didn't have the money to get more?: Never true Within the past 12 months, did you worry whether your food would run out before you got money to buy more?: Never true Do you have trouble paying for medicines?: No Do you have trouble getting transportation to medical appointments?: No Do you have trouble paying your heating and electricity bill?: No Do you have trouble taking care of your child, family member or friend?: No Do you have trouble with day-to-day activities such as bathing, preparing meals, shopping, managing finances, etc.?: No Are you currently unemployed and looking for a job?: No Are you interested in more education?: No Please select the resources that you would like help with: None Currently or been in a relationship where the following occur: No concerns reported THRIVE Score: 0 JENNIFER-7 AMB Questionnaire JENNIFER-7 Date JENNIFER - 7 assessed: 05/30/24 Feeling nervous, anxious, or on edge: 0 = Not at all Not being able to stop or control worryin = Not at all Worrying too much about different things: 0 = Not at all Trouble relaxin = Not at all Being so restless that it is hard to sit still: 0 = Not at all Becoming easily annoyed or irritable: 0 = Not at all Feeling afraid as if something awful might happen: 0 = Not at all Total JENNIFER-7 score (0-4 normal; 5-9 mild; 10-14 moderate; 15-21 severe): 0 Source: Developed by Drs. Leon Velasquez, Rosaura Donnelly, Chuy Javier and colleagues, with an educational kyle from [employer]. JENNIFER-7 Assessment Billing JENNIFER-7 Assessment Tool: JENNIFER-7 Assessment 23480 Physical exam (Primary Care) Vital Signs: Last Vital Signs Temp 97.3 F 02/20/25 09:01 Pulse 64 02/20/25 09:01 Resp 16 02/20/25 09:01 BP 118/60 02/20/25 09:01 Pulse Ox 98 02/20/25 09:01 Oxygen Delivery Method Room Air 02/20/25 09:01 BMI result Body Mass Index 33.9 Tobacco/Smoking Status: Tobacco use Status Tobacco use date assessed 05/30/24 02/20/25 09:03 Patient Tobacco Use Status Current everyday Tobacco 02/20/25 09:03 Tobacco use type Cigarette 02/20/25 09:03 Depression Screening Interpretation: Negative Thrive Assessment: Date of Thrive Assessment Date Thrive assessed 05/30/24 02/20/25 09:03 Currently or been in a relationship where the following occur: No concerns reported Coding Level of Care Code Est Pt Level 4 (17614) Add On Problem Visit Only Diagnoses Diabetes E11.9 Psoriasis L40.9 Obesity E66.9 Erectile dysfunction associated with type 2 diabetes mellitus E11.69; N52.1 Cigarette smoker F17.210 Additional Codes JENNIFER-7 Assessment Billing - JENNIFER-7 Assessment Tool: JENNIFER-7 Assessment 31472 ([id number]) PHQ-9 - 00837 - PHQ-9 Billing: Yes ([id number]) Assessment & Plan Assessment & Plan (1) Diabetes: Comment: Type 2-dx 03/2020-taking metformin QAM-glucose usually 160's to 180's Code(s): E11.9 - Type 2 diabetes mellitus without complications Category: Medical Plan: Very well-controlled with A1c of 5.9%. For now, continue metformin 500 mg daily and glipizide 5 mg daily. If remains well-controlled, we will consider discontinuing or adjusting medications as appropriate. Continue with dietary changes consistent with diabetic diet. Continue with annual eye exams. (2) Psoriasis: Code(s): L40.9 - Psoriasis, unspecified Category: Medical Plan: Much improved with Cosentyx. New referral placed to [facility] so that he can continue following with [facility]. (3) Obesity: Code(s): E66.9 - Obesity, unspecified Category: Medical Plan: Weight loss efforts encouraged. Congratulated on weight loss thus far. Recommend diet lower in calories with increased protein, vegetables, fruits and limit refined sugars and simple carbohydrates as well as highly processed foods. Recommend increased exercise (4) Erectile dysfunction associated with type 2 diabetes mellitus: Code(s): E11.69 - Type 2 diabetes mellitus with other specified complication; N52.1 - Erectile dysfunction due to diseases classified elsewhere Plan: Stable. Continue Cialis as needed (5) Cigarette smoker: Code(s): F17.210 - Nicotine dependence, cigarettes, uncomplicated Category: Social Hx Plan: Not interested in smoking, cessation strongly advised. We will request records for lung cancer screening and is advised to continue with the scans. New referral placed for lung cancer screening Plan Follow-up in 4 months. Labs to be completed today as well as prior to next visit Orders: Orders Basic Metabolic Panel 4 Months E11.9 - Type 2 diabetes mellitus without complications, E66.9 - Obesity, unspecified, E78.5 - Hyperlipidemia, unspecified, F17.210 - Nicotine dependence, cigarettes, uncomplicated, Z12.5 - Encounter for screening for malignant neoplasm of prostate Lipid Panel 4 Months E11.9 - Type 2 diabetes mellitus without complications, E66.9 - Obesity, unspecified, E78.5 - Hyperlipidemia, unspecified, F17.210 - Nicotine dependence, cigarettes, uncomplicated, Z12.5 - Encounter for screening for malignant neoplasm of prostate Liver Panel 4 Months E11.9 - Type 2 diabetes mellitus without complications, E66.9 - Obesity, unspecified, E78.5 - Hyperlipidemia, unspecified, F17.210 - Nicotine dependence, cigarettes, uncomplicated, Z12.5 - Encounter for screening for malignant neoplasm of prostate Hemoglobin A1c 4 Months E11.9 - Type 2 diabetes mellitus without complications, E66.9 - Obesity, unspecified, E78.5 - Hyperlipidemia, unspecified, F17.210 - Nicotine dependence, cigarettes, uncomplicated, Z12.5 - Encounter for screening for malignant neoplasm of prostate Prostate Specific Antigen 4 Months E11.9 - Type 2 diabetes mellitus without complications, E66.9 - Obesity, unspecified, E78.5 - Hyperlipidemia, unspecified, F17.210 - Nicotine dependence, cigarettes, uncomplicated, Z12.5 - Encounter for screening for malignant neoplasm of prostate Referrals Lung Cancer Screening Referral F17.210 - Nicotine dependence, cigarettes, uncomplicated Medications: New atorvastatin (Lipitor) 40 mg PO DAILY 90 tabs 1RF
[2025-02-20 09:01] VITALS: BP 118/60; PULSE 64; RESP 16; TEMP 36.3; O2SAT 98; BMI 33.9
== END 2025-02-20 09:33 | disposition home or self-care (01) ==
LOC: HO.HMCHD 08:55
PROVIDERS: PCP Physician Assistant; Visit Provider Physician Assistant
DX: E11.9 Type 2 diabetes mellitus without complications (principal); L40.9 Psoriasis, unspecified; E66.9 Obesity, unspecified; E11.69 Type 2 diabetes mellitus with other specified complication; N52.1 Erectile dysfunction due to diseases classified elsewhere; F17.210 Nicotine dependence, cigarettes, uncomplicated

== ENCOUNTER → 2025-02-20 08:54 | Outpatient (BNVA) | payer BC, SELFPAY | PROVIDERS: PCP Physician Assistant; Visit Provider Physician Assistant | DX: L40.9 Psoriasis, unspecified (principal); E66.812 Obesity, class 2; Z68.33 Body mass index [BMI] 33.0-33.9, adult; E11.69 Type 2 diabetes mellitus with other specified complication; N52.1 Erectile dysfunction due to diseases classified elsewhere; I87.8 Other specified disorders of veins; M15.9 Polyosteoarthritis, unspecified; F17.210 Nicotine dependence, cigarettes, uncomplicated; Z79.84 Long term (current) use of oral hypoglycemic drugs; Z13.31 Encounter for screening for depression | CPT/HCPCS: 96127 ==